=== PATIENT | female | born 1980 | race Caucasian/White ===

== ENCOUNTER 2023-06-15 11:18 | Inpatient (IN) | payer OTHER, SELFPAY ==
[2023-06-15] VITALS (17 sets, daily range): BP systolic 99–140; BP diastolic 57–93; PULSE 64–119; RESP 16–18; TEMP 36.9–38.2; O2SAT 96–99; BMI 24.1; BMI 26.1
--- NOTE | 2023-06-15 12:08 | PC.NURSE ---
Checked on patient. No needs required at this time.
--- NOTE | 2023-06-15 12:17 | XR_ITS ---
FINAL REPORT CLINICAL HISTORY: Shortness of breath COMPARISON: None FINDINGS: A portable view of the chest is obtained. Cardiac and mediastinal silhouettes are normal. The lungs are clear. There is no pleural effusion or pneumothorax. IMPRESSION: No acute process on this portable exam. Reviewed, Interpreted and Dictated by Courtney Salazar MD Transcribed by Shannan Morgan Authenticated and . [facility]
--- NOTE | 2023-06-15 12:18 | HMH.EDGENADL ---
Discharge Plan Disposition Patient Disposition: Admitted Chief Complaint: Fever Prescriptions Prescriptions: No Action prednisone 10 mg tablet 10 mg PO DAILY quetiapine 200 mg tablet 200 mg PO HS meloxicam 7.5 mg tablet 7.5 mg PO NEEDED PRN (Reason: Pain) amitriptyline 100 mg tablet 100 mg PO HS Patient Comments: TAKE 1 TABLET BY MOUTH ONCE DAILY AT NIGHT duloxetine 30 mg capsule,delayed release(DR/EC) 30 mg PO DAILY Patient Comments: TAKE 1 CAPSULE BY MOUTH ONCE DAILY DO NOT CRUSH OR CHEW methocarbamol 500 mg Tablet 500 mg PO QID Referrals Follow up/Referrals: Sofia Walker [Primary Care Provider] - See instructions Clinical Impressions Clinical Impression: Fever, Headache Discharge ED Provider: Venkatesh Ramirez General Adult HPI General Chief complaint: Fever Stated complaint: Headache, fever, chills Time Seen by Provider: 06/15/23 12:09 Mode of Arrival: Ambulatory Source of Information: Patient Limitations: No Limitations Description of Symptoms (Recalled from ER Triage Doc. by RN): Patient reports fever, chills, headache. States she has been having episodes of chilling, shaking and feeling extremely cold off and on for awhile now. Complaint today is that she can't get her fever down despite taking ibuprofen multiple times. History of Present Illness HPI narrative: 43-year-old female with a history of Sjogren syndrome on hydroxychloroquine here today with several days of headache and fever and shaking chills. This is her third ED visit for this. She went to [place] twice and was not told that she had any specific infectious etiology. She is not chronically on steroids however she was recently started on prednisone by [place]. She states that she does not have a cough she has a very mild sore throat she has no urinary symptoms and her only other major symptom that she complains about is a severe headache. She has no photophobia or neck stiffness. No neurologic symptoms over the last several days. She had a respiratory viral panel done at [place] yesterday and did not know those results because the analyzer was taking too long. Related Data Home Medications Medication Instructions Recorded Confirmed amitriptyline 100 mg tablet 100 mg PO HS sleep 06/15/23 06/15/23 duloxetine 30 mg capsule,delayed 30 mg PO DAILY unknown 06/15/23 06/15/23 release meloxicam 7.5 mg tablet 7.5 mg PO NEEDED PRN Pain 06/15/23 06/15/23 methocarbamol 500 mg tablet 500 mg PO QID Pain 06/15/23 06/15/23 prednisone 10 mg tablet 10 mg PO DAILY unknown 06/15/23 06/15/23 quetiapine 200 mg tablet 200 mg PO HS sleep 06/15/23 06/15/23 Allergies Allergy/AdvReac Type Severity Reaction Status Date / Time Sulfa (Sulfonamide Allergy Mild Verified 01/20/19 17:07 Antibiotics) [SULFA (SULFONAMIDE ANTIBIOTICS)] [facility] Disclaimer: The information contained in this section may have been updated after the patient was seen, as this information can be updated by other users. Social History Smoking Status: Current every day smoker tobacco type: e-cigarettes alcohol intake: never current occupational status: employed Travel in the last 8 weeks: None household members: family housing: house ROS Obtained: Yes All systems reviewed & no additional complaints except as documented Physical Exam General General appearance: alert Neck Neck exam: Absent meningismus (And supple) Respiratory Respiratory exam: Present normal lung sounds bilaterally Cardiovascular Cardiovascular exam: Present regular rate; Absent tachycardia Neurological Exam Neurological exam: Present alert and oriented X3 Medical Decision Making Aurelio Inquiry Pt receiving controlled substance: No Vital Signs: 06/15/23 11:19 06/15/23 11:29 06/15/23 11:30 Temperature 100.1 F H Temperature Source Oral Oral Pulse Rate 105 H Pulse Rate [Radial] 107 H
--- NOTE | 2023-06-15 12:21 | PC.NURSE ---
CALLED [facility] TO GET RECORDS FROM PT RECENT VISIT TO THE HOSPITAL, FAX NUMBER WAS GIVEN NOW WAITING FOR DOCUMENTS
[2023-06-15 12:34] LABS: Alanine Aminotransferase 27 U/L (12-78); Albumin Level 3.8 g/dl (3.5-5.0); Albumin/Globulin Ratio 1.3 (1.1-1.8); Alkaline Phosphatase 58 U/L (38-126); Anion Gap 10.3 mEq/L (5-15); Aspartate Amino Transferase 25 U/L (14-36); Bilirubin,Total 0.5 mg/dl (0.2-1.3); Blood Urea Nitrogen 6 mg/dl (7-17); Calcium 8.5 mg/dl (8.4-10.2); Carbon Dioxide 28 mmol/L (22.0-30.0); Chloride 103 mmol/L (98-107); Creatinine Clearance Estimated 92 mL/min (50-200); Estimated Glomerular Filt Rate 78 ml/min (>60); GFR (African American) 94 ML/MIN (>60); Globulin 2.9 g/dL (1.3-3.2); Glucose 136 mg/dl (74-100); Potassium 3.3 mmoL/L (3.5-5.1); Sodium 138 mmol/L (136-145); Total Protein,Serum 6.7 g/dl (6.3-8.2)
[2023-06-15 12:39] LABS: C-Reactive Protein 170.4 mg/L (0-4)
[2023-06-15 12:53] LABS: Procalcitonin 1.59 ng/mL (0.0-2.0)
--- NOTE | 2023-06-15 12:57 | PC.NURSE ---
COVID SWAB SENT TO LAB
--- NOTE | 2023-06-15 13:03 | PC.NURSE ---
RECEIVED MEDICAL RECORDS IS REVIEWING THEM NOW
[2023-06-15 13:16] LABS: Adenovirus,PCR Not Detected (NotDetected); Bordetella Pertussis Not Detected (NotDetected); Chlamydophila Pneumoniae, PCR Not Detected (NotDetected); Coronavirus 19, PCR Not Detected (NotDetected); Coronavirus 229E Not Detected (NotDetected); Coronavirus NL63 Not Detected (NotDetected); Coronavirus OC43 Not Detected (NotDetected); Coronovirus HKU1,PCR Not Detected (NotDetected); Human Metapneumovirus Not Detected (NotDetected); Influenza A, PCR Not Detected (NotDetected); Influenza AH1, 2009 Not Detected (NotDetected); Influenza AH1, PCR Not Detected (NotDetected); Influenza AH3,PCR Not Detected (NotDetected); Influenza B, PCR Not Detected (NotDetected); Mycoplasma Pneumoniae, PCR Not Detected (NotDetected); Parainfluenza 1, PCR Not Detected (NotDetected); Parainfluenza 2, PCR Not Detected (NotDetected); Parainfluenza 3, PCR Not Detected (NotDetected); Parainfluenza 4, PCR Not Detected (NotDetected); Respiratory Syncytial Virus Not Detected (NotDetected); Rhinovirus/Enterovirus Not Detected (NotDetected)
[2023-06-15 13:17] LABS: Strep Scrn Group A (Rapid) Negative (Negative)
--- NOTE | 2023-06-15 13:19 | PC.NURSE ---
PT NEEDS NOTHING, LAYING IN BED CALL LIGHT AT BS
[2023-06-15 13:40] LABS: Lactic Acid 1.2 mmol/L (0.7-2.1)
[2023-06-15 13:50] LABS: Appearance,Urine CLEAR (Clear); Bilirubin,Urine Negative (Negative); Blood, Urine 2+ (Negative); Color,Urine YELLOW (Yellow); Glucose,Urine (UA) Negative (Negative); Ketones,Urine Negative (Negative); Leukocyte Esterase,Urine TRACE (Negative); Microscopic, Urine URINE MICROSCOPIC (MICROSCOPIC); Nitrate,Urine Negative (Negative); PH,Urine 6.5 (5.0-8.5); Protein,Urine 1+ (Negative); Specific Gravity, Urine 1.015 (1.005-1.030)
[2023-06-15 14:05] LABS: Basophils % 0.1 % (0.1-2.0); Eosinophils % 0.4 % (0.1-12.0); Hematocrit 36.2 % (37.0-47.0); Hemoglobin 12.3 g/dL (12.2-16.2); Lymphocytes # 0.4 K/mm3 (0.7-4.5); Mean Corpuscular Hemoglobin 34.2 pg (27.0-31.2); Mean Corpuscular Volume 100.6 fl (81-99); Mean Platelet Volume 10.2 fl (7.4-10.4); Monocytes # 0.4 K/mm3 (0.1-1.0); Monocytes % 4.4 % (1.7-9.3); Neutrophils # 8.2 K/mm3 (1.8-7.8); Neutrophils % 90.5 % (37.0-80.0); Platelet Count 153 K/mm3 (142-424); Red Cell Distribution Width 11.6 % (11.5-17.5); White Blood Count 9.1 K/mm3 (4.8-10.8)
[2023-06-15 14:06] LABS: MANUAL DIFFERENTIAL MANUAL DIFFERENTIAL (MANUAL DIFF)
[2023-06-15 14:10] LABS: Bacteria,Urine Trace /lpf
[2023-06-15 14:34] LABS: Lymphocytes % 5 % (10-50); Monocytes % 3 % (2-9); Neutrophils % 92 % (42-76); Total Cells Counted 100
[2023-06-15 14:35] LABS: Anisocytosis 1+; Macrocytosis 1+; Ovalocytes 1+; Platelet Estimate Normal
--- NOTE | 2023-06-15 14:39 | PC.NURSE ---
ROUNDED ON PT NOTHING NEED DID GIVE ICECHIPS, CALL LIGHT AT BS
[2023-06-15 15:35] LABS: Glucose,CSF 61 mg/dl (40-70)
[2023-06-15 15:40] LABS: Appearance,CSF Clear (Clear)
[2023-06-15 15:41] LABS: Volume,CSF 8 mL
[2023-06-15 15:53] LABS: Red Blood Cell,CSF 0 cells/uL (0); White Blood Cell,CSF 1 cells/uL (0-5)
--- NOTE | 2023-06-15 15:53 | PC.NURSE ---
house aware of admission and need for bed assignment
--- NOTE | 2023-06-15 16:14 | EXP.PHA.CONS ---
Pharmacy Consult Date: 06/15/23 Time: 16:14 Referring provider: DR. NASH Reason for Consult:: VANCOMYCIN DOSING Allergies Allergy/AdvReac Type Severity Reaction Status Date / Time Sulfa (Sulfonamide Allergy Mild Verified 01/20/19 17:07 Antibiotics) [SULFA (SULFONAMIDE ANTIBIOTICS)] Home Medications Medication Instructions Recorded Confirmed Type amitriptyline 100 mg tablet 100 mg PO HS sleep 06/15/23 06/15/23 History duloxetine 30 mg capsule,delayed 30 mg PO DAILY unknown 06/15/23 06/15/23 History release meloxicam 7.5 mg tablet 7.5 mg PO NEEDED PRN Pain 06/15/23 06/15/23 History methocarbamol 500 mg tablet 500 mg PO QID Pain 06/15/23 06/15/23 History prednisone 10 mg tablet 10 mg PO DAILY unknown 06/15/23 06/15/23 History quetiapine 200 mg tablet 200 mg PO HS sleep 06/15/23 06/15/23 History New Prescriptions to Start Prescriptions: Height: 1.65 m Weight: 65.771 kg Laboratory Results:: Laboratory Results - last 24 hr 06/15/23 11:30: WBC 9.1, RBC 3.60 L, Hgb 12.3, Hct 36.2 L, MCV 100.6 H, MCH 34.2 H, MCHC 34.0, RDW 11.6, Plt Count 153, MPV 10.2, Neut % (Auto) 90.5 H, Lymph % (Auto) 4.0 L, [place] % (Auto) 4.4, Eos % (Auto) 0.4, Baso % (Auto) 0.1, Neut # (Auto) 8.2 H, Lymph # (Auto) 0.4 L, [place] # (Auto) 0.4, Eos # (Auto) 0.0, Baso # (Auto) 0.0, Total Counted 100, Neutrophils % (Manual) 92 H, Lymphocytes % (Manual) 5 L, Monocytes % (Manual) 3, Platelet Estimate Normal, Anisocytosis 1+, Macrocytosis 1+, Ovalocytes 1+, Sodium 138, Potassium 3.3 L, Chloride 103, Carbon Dioxide 28, Anion Gap 10.3, BUN 6 L, Creatinine 0.80, Estimated Creat Clear 92, Estimated GFR 78, Est GFR ( Amer) 94, Glucose 136 H, Calcium 8.5, Total Bilirubin 0.5, AST 25, ALT 27, Alkaline Phosphatase 58, C-Reactive Protein 170.4 H, Total Protein 6.7, Albumin 3.8, Globulin 2.9, Albumin/Globulin Ratio 1.3, Procalcitonin 1.59 06/15/23 12:56: Chlamy pneumoniae PCR Not detected, Adenovirus (PCR) Not detected, B. pertussis DNA (PCR) Not detected, Coronavirus OC43 (PCR) Not detected, Coronavirus HKU1 (PCR) Not detected, Coronavirus 229E (PCR) Not detected, SARS-CoV-2 (PCR) Not detected, Coronavirus NL63 (PCR) Not detected, Human Metapneumovir PCR Not detected, Influenza A (H1) PCR Not detected, Influ A (H1N1/09) PCR Not detected, Influenza A (H3) PCR Not detected, Influenza Type A (PCR) Not detected, Influenza Type B (PCR) Not detected, M. pneumoniae (PCR) Not detected, Parainfluenza 1 (PCR) Not detected, Parainfluenza 2 (PCR) Not detected, Parainfluenza 3 (PCR) Not detected, Parainfluenza 4 (PCR) Not detected, RSV (PCR) Not detected, Entero/Rhino (PCR) Not detected 06/15/23 13:00: Group A Strep Rapid Negative 06/15/23 13:03: Lactate 1.2 06/15/23 13:32: Urine Color Yellow, Urine Appearance Clear, Urine pH 6.5, Ur Specific [place] 1.015, Urine Protein 1+, Urine Glucose (UA) Negative, Urine Ketones Negative, Urine Blood 2+, Urine Nitrate Negative, Urine Bilirubin Negative, Urine Urobilinogen 1.0, Ur Leukocyte Esterase Trace, Urine RBC 5-10, Urine WBC 5-10, Ur Squamous Epith Cells 3-5, Urine Bacteria Trace 06/15/23 15:00: CSF Volume 8, CSF Appearance Clear, CSF WBC 1, CSF RBC 0, CSF Glucose 61, CSF Total Protein 30.0 Assessment and Plan Assessment and plan all Dx Assessment and Plan for all problems:: Pharmacokinetic dosing service Objective: Patient: Floor: Age: 43 yo Serum creatinine: 0.8 mg/dL Height: 65.0 Inches Weight (kg): 65.77 Assessment: IBW (kg): 57.00 Dosing wt(kg): 65.77 Estimated Creatinine clearance (ml/min): 79.9 CRCL method: Cockcroft and Gault using ibw(default). Drug selected: Vancomycin Loading dose (mg): 0 Vd (liters): 52.6 (factor used: 0.8 L/kg) Jose Elias (hr-1): 0.071 Half life (hrs): 9.76 Recommended dose: 1000 mg Interval: 12 hrs Infusion time (hrs): 2.0 Predicted peak (mcg/mL): 30.9 Predicted trough (mcg/mL): 15.19
--- NOTE | 2023-06-15 16:21 | PC.NURSE ---
Report given to Fco on Med Surg.
--- NOTE | 2023-06-15 16:22 | EXP.HP ---
History of Present Illness *Admission Date: 06/15/23 *Reason for visit:: fever, chills and headache *History of present illness: Ms. Russo is a 43 year old female with a past medical history of sjogren's syndrome (on hydroxychloroquine) and fibromyalgia. She presented to the ED with 4 days of fever, chills, intermittent body aches and recently has had a headache. She reports measuring a fever at home was as high as 103 F. She denies change in vision, new numbness/tingling, seizure like activity or involuntary movements and confusion. She's never been diagnosed with meningitis in the past. She hasn't recently taken antibiotics. She denies dysuria, polyuria, cough, shortness of breath, abdominal pain and diarrhea. [facility] Disclaimer: The information contained in this section may have been updated after the patient was seen, as this information can be updated by other users. Social History Smoking Status: Current every day smoker tobacco type: e-cigarettes alcohol intake: never current occupational status: employed Travel in the last 8 weeks: None household members: family housing: house Review of Systems Review of Systems Review of systems:: pertinent systems reviewed and negative unless documented below Constitutional Constitutional: Reports body ache(s), Reports fever(s) and Reports headache(s) ENT Ears, Nose, Mouth, and Throat: Reports headache(s) *Neurologic Neurologic: Reports headache(s) Meds Home Medications and Allergies Home Medications Medication Instructions Recorded Confirmed Type amitriptyline 100 mg tablet 100 mg PO HS sleep 06/15/23 06/15/23 History duloxetine 30 mg capsule,delayed 30 mg PO DAILY unknown 06/15/23 06/15/23 History release meloxicam 7.5 mg tablet 7.5 mg PO NEEDED PRN Pain 06/15/23 06/15/23 History methocarbamol 500 mg tablet 500 mg PO QID Pain 06/15/23 06/15/23 History prednisone 10 mg tablet 10 mg PO DAILY unknown 06/15/23 06/15/23 History quetiapine 200 mg tablet 200 mg PO HS sleep 06/15/23 06/15/23 History New Prescriptions to Start Prescriptions: Allergies Allergy/AdvReac Type Severity Reaction Status Date / Time Sulfa (Sulfonamide Allergy Mild Verified 01/20/19 17:07 Antibiotics) [SULFA (SULFONAMIDE ANTIBIOTICS)] Exam Data for Last 24 hours Vital signs and Labs for Last 24 Hours: Temp Pulse Resp BP Pulse Ox O2 Del Method 100.1 F H 112 H 18 124/82 97 Room Air 06/15/23 11:19 06/15/23 15:30 06/15/23 11:19 06/15/23 15:30 06/15/23 15:30 06/15/23 15:30 Laboratory Results - last 24 hr 06/15/23 11:30: WBC 9.1, RBC 3.60 L, Hgb 12.3, Hct 36.2 L, MCV 100.6 H, MCH 34.2 H, MCHC 34.0, RDW 11.6, Plt Count 153, MPV 10.2, Neut % (Auto) 90.5 H, Lymph % (Auto) 4.0 L, [place] % (Auto) 4.4, Eos % (Auto) 0.4, Baso % (Auto) 0.1, Neut # (Auto) 8.2 H, Lymph # (Auto) 0.4 L, [place] # (Auto) 0.4, Eos # (Auto) 0.0, Baso # (Auto) 0.0, Total Counted 100, Neutrophils % (Manual) 92 H, Lymphocytes % (Manual) 5 L, Monocytes % (Manual) 3, Platelet Estimate Normal, Anisocytosis 1+, Macrocytosis 1+, Ovalocytes 1+, Sodium 138, Potassium 3.3 L, Chloride 103, Carbon Dioxide 28, Anion Gap 10.3, BUN 6 L, Creatinine 0.80, Estimated Creat Clear 92, Estimated GFR 78, Est GFR ( Amer) 94, Glucose 136 H, Calcium 8.5, Total Bilirubin 0.5, AST 25, ALT 27, Alkaline Phosphatase 58, C-Reactive Protein 170.4 H, Total Protein 6.7, Albumin 3.8, Globulin 2.9, Albumin/Globulin Ratio 1.3, Procalcitonin 1.59 06/15/23 12:56: Chlamy pneumoniae PCR Not detected, Adenovirus (PCR) Not detected, B. pertussis DNA (PCR) Not detected, Coronavirus OC43 (PCR) Not detected, Coronavirus HKU1 (PCR) Not detected, Coronavirus 229E (PCR) Not detected, SARS-CoV-2 (PCR) Not detected, Coronavirus NL63 (PCR) Not detected, Human Metapneumovir PCR Not detected, Influenza A (H1) PCR Not detected, Influ A (H1N1/09) PCR Not detected, Influenza A (H3) PCR Not detected, Influenza Type A (PCR) Not detected, Infl
[2023-06-15 16:37] LABS: Mononuclear WBCs,CSF 0 %; Polynuclear WBCs,CSF 0 %
--- NOTE | 2023-06-15 16:37 | PC.NURSE ---
arrived by stretcher from ED
[2023-06-15 18:04] LABS: Barbiturates Screen,Urine Negative ng/ml (<200)
[2023-06-15 18:05] LABS: Benzodiazepines Screen,Urine Negative ng/ml (<200)
[2023-06-15 18:06] LABS: Amphetamine/Metha Screen,Urine Negative ng/ml (<1000); Cannabinoid Screen,Urine Negative ng/ml (<50)
[2023-06-15 18:07] LABS: Cocaine Screen,Urine Negative ng/ml (<300)
[2023-06-15 18:08] LABS: Methadone Screen,Urine Negative ng/ml (<300); Opiate Screen,Urine Negative ng/ml (<300)
[2023-06-15 18:09] LABS: Phencyclidine Screen,Urine Negative ng/ml (<25)
--- NOTE | 2023-06-15 22:46 | PC.NURSE ---
after hours drug mix- verified with Lesly from after hours pharmacy. SEE MAR
[2023-06-16] VITALS (9 sets, daily range): BP systolic 104–130; BP diastolic 48–72; PULSE 92–111; RESP 16–18; TEMP 36.8–39.5; O2SAT 94–99; BMI 26.6
--- NOTE | 2023-06-16 04:14 | PC.NURSE ---
pt temp has ranged from 99.0F to 103.1F t/o shift/since 1899. called hospitalist to report temp of 103.1, gave prn tylenol 650mg. pt has had c/o unrelieved ARREAGA and shivering t/o shift. skin: facial peeling r/t cosmetic treatment. RA. A&OX4. 20g LAC SL. up adlib. bed locked/lowest position, call light within reach.
--- NOTE | 2023-06-16 04:39 | INFXCTL.NOTE ---
rechecked temp 99.7
--- NOTE | 2023-06-16 04:40 | PC.NURSE ---
rechecked temp 99.7
[2023-06-16 07:01] LABS: Anion Gap 10.1 mEq/L (5-15); Blood Urea Nitrogen 6 mg/dl (7-17); Calcium 7.8 mg/dl (8.4-10.2); Carbon Dioxide 25 mmol/L (22.0-30.0); Chloride 106 mmol/L (98-107); Creatinine Clearance Estimated 91 mL/min (50-200); Estimated Glomerular Filt Rate 68 ml/min (>60); GFR (African American) 82 ML/MIN (>60); Glucose 98 mg/dl (74-100); Potassium 3.1 mmoL/L (3.5-5.1); Sodium 138 mmol/L (136-145)
[2023-06-16 07:09] LABS: Mean Platelet Volume 8.2 fl (7.4-10.4); Neutrophils # 8.6 K/mm3 (1.8-7.8)
[2023-06-16 07:10] LABS: Basophils % 0.1 % (0.1-2.0); Eosinophils # 0.1 K/mm3 (0.0-0.4); Eosinophils % 0.5 % (0.1-12.0); Hematocrit 33.1 % (37.0-47.0); Lymphocytes # 0.8 K/mm3 (0.7-4.5); Lymphocytes % 7.6 % (10-50); Mean Corpuscular HGB Conc 33.1 g/dL (31.8-35.4); Mean Corpuscular Volume 102.6 fl (81-99); Monocytes % 9.7 % (1.7-9.3); Platelet Count 131 K/mm3 (142-424); Red Blood Count 3.23 M/mm3 (4.20-5.40); Red Cell Distribution Width 12.2 % (11.5-17.5); White Blood Count 10.5 K/mm3 (4.8-10.8)
--- NOTE | 2023-06-16 09:24 | EXP.ACUTE.PN ---
Subjective *Date: 06/16/23 *Time: 17:41 Interval history: Events overnight: -Tmax 103.1 Fahrenheit today 4 AM -Blood culture positive for gram-negative rods, E. coli by PCR -Source unclear could be genitourinary -Stop acyclovir as CSF analysis not suggestive of meningitis -Platelet count 153-->131 (06/16) -Potassium 3.3--> 3.1 Subjective : intermittent chills per patient. No dysuria. May have felt a little bit of suprapubic abdominal pain. No nausea or vomiting. No neck stiffness. No headache. No blurry vision. No joint pains or new skin rash. No nausea or vomiting or diarrhea. No cough or shortness of breath. Medical Exam Vital signs and Labs for Last 24 Hours: Vital Signs Temp Pulse Pulse Resp BP BP Pulse Ox 06/16/23 07:59 98.8 F 101 H 17 114/67 94 L 06/16/23 06:18 06/16/23 04:41 06/16/23 04:00 103.1 F H 111 H 18 104/48 L 98 06/16/23 04:40 99.7 F H 06/16/23 02:44 06/16/23 00:00 98.9 F 105 H 18 114/62 96 06/16/23 01:00 06/15/23 23:00 06/15/23 21:00 06/15/23 20:00 06/15/23 23:03 100.7 F H 06/15/23 20:00 99.0 F 103 H 16 118/60 98 06/15/23 17:59 98.5 F 105 H 16 99/57 L 97 06/15/23 17:58 06/15/23 17:50 98 06/15/23 17:26 99.4 F 64 18 128/68 06/15/23 17:00 06/15/23 15:30 112 H 124/82 97 06/15/23 15:00 110 H 127/79 98 06/15/23 14:30 115 H 127/90 98 06/15/23 14:01 119 H 117/83 96 06/15/23 13:40 114 H 113/74 99 06/15/23 13:30 113 H 135/90 97 06/15/23 13:18 110 H 140/93 H 97 06/15/23 13:00 111 H 125/82 96 06/15/23 12:30 108 H 115/78 97 06/15/23 12:00 110 H 117/78 99 06/15/23 11:30 105 H 130/83 98 06/15/23 11:19 100.1 F H 107 H 18 134/88 99 O2 Del Method 06/16/23 07:59 Room Air 06/16/23 06:18 Room Air 06/16/23 04:41 Room Air 06/16/23 04:00 Room Air 06/16/23 04:40 06/16/23 02:44 Room Air 06/16/23 00:00 Room Air 06/16/23 01:00 Room Air 06/15/23 23:00 Room Air 06/15/23 21:00 Room Air 06/15/23 20:00 Room Air 06/15/23 23:03 06/15/23 20:00 Room Air 06/15/23 17:59 Room Air 06/15/23 17:58 Room Air 06/15/23 17:50 Room Air 06/15/23 17:26 Room Air 06/15/23 17:00 Room Air 06/15/23 15:30 Room Air 06/15/23 15:00 Room Air 06/15/23 14:30 Room Air 06/15/23 14:01 Room Air 06/15/23 13:40 Room Air 06/15/23 13:30 Room Air 06/15/23 13:18 Room Air 06/15/23 13:00 Room Air 06/15/23 12:30 Room Air 06/15/23 12:00 Room Air 06/15/23 11:30 06/15/23 11:19 Room Air Intake and Output 06/15/23 06/16/23 06/16/23 23:59 07:59 15:59 Intake Total 240 / 850 850 / 850 Output Total 0 / 0 0 / 0 Balance 240 / 850 850 / 850 Intake: Intake, Oral Amount 240 / 480 480 / 480 Intake, Total IV Amount 370 / 370 Acyclovir Sodium 650 mg In 0.9 263 / 263 % Sodium Chloride 250 ml @ 250 mls/hr IV Q8H NAVEEN Rx#:[id number] Ceftriaxone Sodium 2 gm In 0.9 107 / 107 % Sodium Chloride 100 ml @ 100 mls/hr IV Q12 NAVEEN Rx#:[id number] Output: Output, Urine Amount 0 / 0 0 / 0 Other: Number of Unmeasured Voids 1 Weight 71.1 kg 72.665 kg Patient Weight 06/16/23 23:59 Weight 72.665 kg Laboratory Results - last 24 hr 06/15/23 11:30: WBC 9.1, RBC 3.60 L, Hgb 12.3, Hct 36.2 L, MCV 100.6 H, MCH 34.2 H, MCHC 34.0, RDW 11.6, Plt Count 153, MPV 10.2, Neut % (Auto) 90.5 H, Lymph % (Auto) 4.0 L, [place] % (Auto) 4.4, Eos % (Auto) 0.4, Baso % (Auto) 0.1, Neut # (Auto) 8.2 H, Lymph # (Auto) 0.4 L, [place] # (Auto) 0.4, Eos # (Auto) 0.0, Baso # (Auto) 0.0, Total Counted 100, Neutrophils % (Manual) 92 H, Lymphocytes % (Manual) 5 L, Monocytes % (Manual) 3, Platelet Estimate Normal, Anisocytosis 1+, Macrocytosis 1+, Ovalocytes 1+, Sodium 138, Potassium 3.3 L, Chloride 103, Carbon Dioxide 28, Anion Gap 10.3, BUN 6 L, Creatinine 0.80, Estimated Creat Cl
--- NOTE | 2023-06-16 14:32 | PC.NURSE ---
courtesy tech note: pt given a warm blanket per requests. call light is within reach.
--- NOTE | 2023-06-16 18:12 | PC.NURSE ---
Fever noted, treated with prn acetaminophen. VS stable and patient remained on room air. One time dose ativan ordered as patient was shivering uncontrollably and anxious. Patient stated she felt much better after administration. IV antibiotics given. No pain reported
--- NOTE | 2023-06-16 19:49 | PC.NURSE ---
BSSR report from KULWINDER Lai
[2023-06-17] VITALS: BP 128/72; PULSE 104; RESP 16; TEMP 37; O2SAT 92
[2023-06-17 04:00] VITALS: BP 117/73; PULSE 97; RESP 17; TEMP 37.3; O2SAT 97; BMI 28.1
[2023-06-17 07:00] LABS: Basophils % 0.2 % (0.1-2.0); Eosinophils # 0.1 K/mm3 (0.0-0.4); Eosinophils % 1.1 % (0.1-12.0); Hematocrit 32.3 % (37.0-47.0); Hemoglobin 10.5 g/dL (12.2-16.2); Lymphocytes # 1.4 K/mm3 (0.7-4.5); Lymphocytes % 15.6 % (10-50); Mean Corpuscular HGB Conc 32.5 g/dL (31.8-35.4); Mean Corpuscular Hemoglobin 33.2 pg (27.0-31.2); Mean Corpuscular Volume 102.1 fl (81-99); Mean Platelet Volume 8.4 fl (7.4-10.4); Monocytes # 0.7 K/mm3 (0.1-1.0); Monocytes % 7.6 % (1.7-9.3); Neutrophils # 6.6 K/mm3 (1.8-7.8); Neutrophils % 75.5 % (37.0-80.0); Platelet Count 163 K/mm3 (142-424); Red Blood Count 3.17 M/mm3 (4.20-5.40); Red Cell Distribution Width 12.3 % (11.5-17.5); White Blood Count 8.7 K/mm3 (4.8-10.8)
[2023-06-17 07:11] LABS: Alanine Aminotransferase 22 U/L (12-78); Albumin Level 2.9 g/dl (3.5-5.0); Albumin/Globulin Ratio 1.1 (1.1-1.8); Alkaline Phosphatase 69 U/L (38-126); Anion Gap 7.7 mEq/L (5-15); Aspartate Amino Transferase 19 U/L (14-36); Bilirubin,Total 0.2 mg/dl (0.2-1.3); Blood Urea Nitrogen 9 mg/dl (7-17); Calcium 7.9 mg/dl (8.4-10.2); Carbon Dioxide 24 mmol/L (22.0-30.0); Chloride 110 mmol/L (98-107); Creatinine Clearance Estimated 108 mL/min (50-200); Estimated Glomerular Filt Rate 78 ml/min (>60); GFR (African American) 94 ML/MIN (>60); Globulin 2.7 g/dL (1.3-3.2); Glucose 100 mg/dl (74-100); Potassium 3.7 mmoL/L (3.5-5.1); Sodium 138 mmol/L (136-145); Total Protein,Serum 5.6 g/dl (6.3-8.2)
[2023-06-17 07:35] VITALS: BP 145/75; PULSE 99; RESP 18; TEMP 36.8; O2SAT 99
--- NOTE | 2023-06-17 09:59 | EXP.ACUTE.PN ---
Subjective *Date: 06/17/23 *Time: 09:59 Interval history: feeling much better, slept well no more chills no dysuria. No other new sx. Medical Exam Vital signs and Labs for Last 24 Hours: Vital Signs Temp Pulse Resp BP Pulse Ox O2 Del Method 06/17/23 07:35 98.3 F 99 H 18 145/75 H 99 Room Air 06/17/23 06:48 Room Air 06/17/23 04:00 99.1 F 97 H 17 117/73 97 Room Air 06/17/23 05:00 Room Air 06/17/23 02:54 Room Air 06/17/23 01:00 Room Air 06/17/23 00:00 98.6 F 104 H 16 128/72 92 L Room Air 06/16/23 23:00 Room Air 06/16/23 21:00 Room Air 06/16/23 20:00 Room Air 06/16/23 20:00 99.1 F 92 H 16 121/72 98 Room Air 06/16/23 18:51 Room Air 06/16/23 18:28 100.0 F H 06/16/23 17:00 Room Air 06/16/23 15:54 100.6 F H 06/16/23 15:00 Room Air 06/16/23 15:08 102.5 F H 94 H 18 130/65 99 Room Air 06/16/23 13:06 Room Air 06/16/23 11:08 Room Air 06/16/23 11:22 98.2 F 99 H 18 109/62 L 98 Room Air Intake and Output 06/16/23 06/17/23 06/17/23 23:59 07:59 15:59 Intake Total 726 / 2116 440 / 440 Output Total 700 / 900 300 / 300 0 / 300 Balance 26 / 1216 140 / 140 0 / 140 Intake: Intake, Oral Amount 240 / 1160 440 / 440 Intake, Total IV Amount 486 / 956 0.45% NaCl w/20mEq KCL 1,000 ml 386 / 386 @ 75 mls/hr IV .[id number] NAVEEN Rx #:[id number] Ceftriaxone Sodium 2 gm In 0.9 100 / 307 % Sodium Chloride 100 ml @ 100 mls/hr IV Q12 NAVEEN Rx#:[id number] Output: Output, Urine Amount 700 / 900 300 / 300 0 / 300 Other: Number of Voids 2 Number of Unmeasured Voids 1 1 Weight 76.748 kg Patient Weight 06/17/23 23:59 Weight 76.748 kg Laboratory Results - last 24 hr 06/15/23 13:32: Urine Color Yellow, Urine Appearance Clear, Urine pH 6.5, Ur Specific [place] 1.015, Urine Protein 1+, Urine Glucose (UA) Negative, Urine Ketones Negative, Urine Blood 2+, Urine Nitrate Negative, Urine Bilirubin Negative, Urine Urobilinogen 1.0, Ur Leukocyte Esterase Trace, Urine RBC 5-10, Urine WBC 5-10, Ur Squamous Epith Cells 3-5, Urine Bacteria Trace 06/17/23 06:33: WBC 8.7, RBC 3.17 L, Hgb 10.5 L, Hct 32.3 L, MCV 102.1 H, MCH 33.2 H, MCHC 32.5, RDW 12.3, Plt Count 163, MPV 8.4, Neut % (Auto) 75.5, Lymph % (Auto) 15.6, [place] % (Auto) 7.6, Eos % (Auto) 1.1, Baso % (Auto) 0.2, Neut # (Auto) 6.6, Lymph # (Auto) 1.4, [place] # (Auto) 0.7, Eos # (Auto) 0.1, Baso # (Auto) 0.0, Sodium 138, Potassium 3.7, Chloride 110 H, Carbon Dioxide 24, Anion Gap 7.7, BUN 9 D, Creatinine 0.80, Estimated Creat Clear 108, Estimated GFR 78, Est GFR ( Amer) 94, Glucose 100, Calcium 7.9 L, Total Bilirubin 0.2, AST 19, ALT 22, Alkaline Phosphatase 69, Total Protein 5.6 L, Albumin 2.9 L, Globulin 2.7, Albumin/Globulin Ratio 1.1 I & O for Labs for Last 24 Hours: Intake & Output 06/14/23 06/15/23 06/16/23 06/17/23 23:59 23:59 23:59 23:59 Intake Total 240 / 850 1916 / 2116 440 / 440 Output Total 0 / 0 700 / 900 300 / 300 Balance 240 / 850 1216 / 1216 140 / 140 Weight 71.1 kg 72.665 kg 76.748 kg Microbiology Reports for the Last 24 Hours: Microbiology 06/15/23 13:00 Throat Group A Streptococcus Screen ([facility]) - Final Negative for Group A Streptococcus. 06/15/23 13:05 Blood Blood Culture - Preliminary Gram Negative Rods 06/15/23 14:40 Cerebral Spinal Fluid Gram Stain - Final 06/15/23 14:40 Cerebral Spinal Fluid CSF Culture - Preliminary NO GROWTH AFTER 24 HOURS Additional Findings:: Genenral: no distress Chest: CTA oral cavity: moist CVS: RRR, no murmurs Abd: soft, non tender Ext: no edema Skin: no rash Neuro: AAOx3, ambulating MSK: no new joint pain or swelling Assessment and Plan *Assessment and plan (1) Gram-negative septicemia: Status: Acute Category: Medical Code(s): A41.50
[2023-06-17 11:34] VITALS: BP 121/76; PULSE 85; RESP 19; TEMP 36.9; O2SAT 97
[2023-06-17 15:28] VITALS: BP 139/95; PULSE 86; RESP 17; TEMP 36.9; O2SAT 98
[2023-06-17 20:00] VITALS: BP 116/67; PULSE 95; RESP 16; TEMP 37.4; O2SAT 97
[2023-06-18] VITALS: BP 121/76; PULSE 72; RESP 16; TEMP 36.6; O2SAT 96
[2023-06-18 04:00] VITALS: BP 115/66; PULSE 91; RESP 16; TEMP 37.6; O2SAT 95; BMI 26.9
[2023-06-18 07:07] LABS: Basophils % 0.4 % (0.1-2.0); Eosinophils # 0.2 K/mm3 (0.0-0.4); Eosinophils % 3.4 % (0.1-12.0); Hematocrit 34.6 % (37.0-47.0); Lymphocytes # 0.9 K/mm3 (0.7-4.5); Mean Corpuscular HGB Conc 31.8 g/dL (31.8-35.4); Mean Corpuscular Hemoglobin 32.9 pg (27.0-31.2); Mean Corpuscular Volume 103.4 fl (81-99); Mean Platelet Volume 8.4 fl (7.4-10.4); Monocytes # 0.3 K/mm3 (0.1-1.0); Monocytes % 5.1 % (1.7-9.3); Neutrophils % 77.2 % (37.0-80.0); Platelet Count 213 K/mm3 (142-424); Red Blood Count 3.35 M/mm3 (4.20-5.40); Red Cell Distribution Width 12.6 % (11.5-17.5); White Blood Count 6.5 K/mm3 (4.8-10.8)
[2023-06-18 07:14] LABS: Anion Gap 9.1 mEq/L (5-15); Blood Urea Nitrogen 7 mg/dl (7-17); Calcium 8.1 mg/dl (8.4-10.2); Carbon Dioxide 25 mmol/L (22.0-30.0); Chloride 108 mmol/L (98-107); Creatinine Clearance Estimated 118 mL/min (50-200); Estimated Glomerular Filt Rate 90 ml/min (>60); GFR (African American) 109 ML/MIN (>60); Glucose 131 mg/dl (74-100); Potassium 3.1 mmoL/L (3.5-5.1); Sodium 139 mmol/L (136-145)
[2023-06-18 08:00] VITALS: BP 159/75; PULSE 91; RESP 18; TEMP 36.4; O2SAT 98
--- NOTE | 2023-06-18 08:17 | EXP.DC.SUM ---
General Admission date:: 06/15/23 Discharge date: 06/18/23 HPI HPI HPI: Ms. Russo is a 43 year old female with a past medical history of sjogren's syndrome (on hydroxychloroquine) and fibromyalgia. She presented to the ED with 4 days of fever, chills, intermittent body aches and recently has had a headache. She reports measuring a fever at home was as high as 103 F. She denies change in vision, new numbness/tingling, seizure like activity or involuntary movements and confusion. She's never been diagnosed with meningitis in the past. She hasn't recently taken antibiotics. She denies dysuria, polyuria, cough, shortness of breath, abdominal pain and diarrhea. Hospital Course Hospital Course Hospital Course: 43-year-old female with history of Sjogren's presenting with complaints of ongoing fevers, myalgia and headache. Initial work-up suspicious for meningitis. LP done in the ER with CSF analysis not clearly indicated of meningitis, Gram stain negative for any organism. Started on empiric coverage with acyclovir, IV vancomycin and ceftriaxone. Blood culture returned positive for E. coli. Unclear source however suspect urogenital. Antibiotics and antimicrobials were weaned to ceftriaxone. Given sensitivity of culture, was transitioned to levofloxacin prior to discharge to complete 10 days of antibiotics. Work up during admission with the following findings. chest x-ray on 06/15: No pneumonia or infiltrate UA on 06/15: Appearance clear, negative for nitrates, trace leukocyte esterase, WBC 5-10, trace bacteria CSF analysis on 06/15: Volume 80 mL, appearance clear, CSF WBC 1, 0 RBC, CSF glucose 61, total protein 30 Blood culture on 06/15: Positive for E. coli. Sensitive to levofloxacin and ceftriaxone. Urine culture remained negative. During admission, fever resolved. Remained afebrile for over 36 hours prior to discharge. White cell count improved. Thrombocytopenia improved. Overall back to baseline clinical status. Spent 40 minutes in discharge counseling and direct care with patient. Exam Data for Last 24 hours Vital signs and Labs for Last 24 Hours: Temp Pulse Resp BP Pulse Ox O2 Del Method 99.7 F H 91 H 16 115/66 95 Room Air 06/18/23 04:00 06/18/23 04:00 06/18/23 04:00 06/18/23 04:00 06/18/23 04:00 06/18/23 04:19 Laboratory Results - last 24 hr 06/18/23 06:11: WBC 6.5 D, RBC 3.35 L, Hgb 11.0 L, Hct 34.6 L, MCV 103.4 H, MCH 32.9 H, MCHC 31.8, RDW 12.6, Plt Count 213 D, MPV 8.4, Neut % (Auto) 77.2, Lymph % (Auto) 14.0, [place] % (Auto) 5.1, Eos % (Auto) 3.4, Baso % (Auto) 0.4, Neut # (Auto) 5.0, Lymph # (Auto) 0.9, [place] # (Auto) 0.3, Eos # (Auto) 0.2, Baso # (Auto) 0.0, Sodium 139, Potassium 3.1 L, Chloride 108 H, Carbon Dioxide 25, Anion Gap 9.1, BUN 7, Creatinine 0.70, Estimated Creat Clear 118, Estimated GFR 90, Est GFR ( Amer) 109, Glucose 131 H D, Calcium 8.1 L I & O for Last 24 hours: Intake & Output 06/15/23 06/16/23 06/17/23 06/18/23 23:59 23:59 23:59 23:59 Intake Total 240 / 850 1916 / 2116 1560 / 1560 Output Total 0 / 0 700 / 900 1300 / 1300 Balance 240 / 850 1216 / 1216 260 / 260 Weight 71.1 kg 72.665 kg 76.748 kg 73.5 kg Microbiology Reports for the Last 24 Hours: Microbiology 06/15/23 13:05 Blood Blood Culture - Final Escherichia coli 06/15/23 14:40 Cerebral Spinal Fluid Gram Stain - Final 06/15/23 14:40 Cerebral Spinal Fluid CSF Culture - Preliminary NO GROWTH AFTER 48 HOURS 06/15/23 13:03 Blood Blood Culture - Preliminary NO GROWTH AFTER 48 HOURS 06/16/23 12:37 Urine,Clean Catch Urine Culture - Preliminary NO GROWTH AFTER 24 HOURS 06/15/23 13:00 Throat Group A Streptococcus Screen ([facility]) - Final Negative for Group A Streptococcus. Constitutional Constitutional: no acute distress *Routine HEENT Exam Head: Pr
--- NOTE | 2023-06-18 08:48 | PC.NURSE ---
COURTESY TECH NOTE; ROUNDED ON PT 0800, PT DENIED NEED FOR DRINK, ASSISTANCE WITH RESTROOM, AND NEED TO REPOSITION IN BED. CALL LIGHT WITHIN REACH, NO FURTHER REQUESTS AT THIS TIME KYM LLANES
--- NOTE | 2023-06-18 09:05 | EXP.PHA.PN ---
Subjective *Date: 06/18/23 *Time: 09:05 Medical Exam Vital signs and Labs for Last 24 Hours: Vital Signs Temp Pulse Resp BP Pulse Ox O2 Del Method 06/18/23 08:00 97.6 F 91 H 18 159/75 H 98 06/18/23 04:19 Room Air 06/18/23 04:00 99.7 F H 91 H 16 115/66 95 06/18/23 03:00 Room Air 06/18/23 01:00 Room Air 06/18/23 00:00 98 F 72 16 121/76 96 Room Air 06/17/23 23:00 Room Air 06/17/23 21:00 Room Air 06/17/23 20:00 99.4 F 95 H 16 116/67 97 Room Air 06/17/23 19:42 Room Air 06/17/23 18:21 Room Air 06/17/23 17:00 Room Air 06/17/23 15:00 Room Air 06/17/23 15:28 98.5 F 86 17 139/95 H 98 Room Air 06/17/23 13:00 Room Air 06/17/23 11:00 Room Air 06/17/23 11:34 98.5 F 85 19 121/76 97 Room Air Intake and Output 06/17/23 06/18/23 06/18/23 23:59 07:59 15:59 Intake Total 880 / 1560 720 / 720 Output Total 1000 / 1300 0 / 0 Balance -120 / 260 720 / 720 Intake: Intake, Oral Amount 880 / 1560 720 / 720 Output: Output, Urine Amount 1000 / 1300 0 / 0 Other: Number of Voids 3 Number of Unmeasured Voids 1 1 Weight 73.5 kg Patient Weight 06/18/23 23:59 Weight 73.5 kg Laboratory Results - last 24 hr 06/18/23 06:11: WBC 6.5 D, RBC 3.35 L, Hgb 11.0 L, Hct 34.6 L, MCV 103.4 H, MCH 32.9 H, MCHC 31.8, RDW 12.6, Plt Count 213 D, MPV 8.4, Neut % (Auto) 77.2, Lymph % (Auto) 14.0, [place] % (Auto) 5.1, Eos % (Auto) 3.4, Baso % (Auto) 0.4, Neut # (Auto) 5.0, Lymph # (Auto) 0.9, [place] # (Auto) 0.3, Eos # (Auto) 0.2, Baso # (Auto) 0.0, Sodium 139, Potassium 3.1 L, Chloride 108 H, Carbon Dioxide 25, Anion Gap 9.1, BUN 7, Creatinine 0.70, Estimated Creat Clear 118, Estimated GFR 90, Est GFR ( Amer) 109, Glucose 131 H D, Calcium 8.1 L I & O for Labs for Last 24 Hours: Intake & Output 06/15/23 06/16/23 06/17/23 06/18/23 23:59 23:59 23:59 23:59 Intake Total 240 / 850 1916 / 2116 1560 / 1560 720 / 720 Output Total 0 / 0 700 / 900 1300 / 1300 0 / 0 Balance 240 / 850 1216 / 1216 260 / 260 720 / 720 Weight 71.1 kg 72.665 kg 76.748 kg 73.5 kg Microbiology Reports for the Last 24 Hours: Microbiology 06/15/23 13:05 Blood Blood Culture - Final Escherichia coli 06/15/23 14:40 Cerebral Spinal Fluid Gram Stain - Final 06/15/23 14:40 Cerebral Spinal Fluid CSF Culture - Preliminary NO GROWTH AFTER 48 HOURS 06/15/23 13:03 Blood Blood Culture - Preliminary NO GROWTH AFTER 48 HOURS 06/16/23 12:37 Urine,Clean Catch Urine Culture - Preliminary NO GROWTH AFTER 24 HOURS 06/15/23 13:00 Throat Group A Streptococcus Screen ([facility]) - Final Negative for Group A Streptococcus. The patient's infection will respond to the chosen ABx?: Yes (BLOOD CX = E.COLI ROCEPHIN SUSCEPTIBLE, WBC WNL, LOW GRADE FEVER 99.7.) Is the patient receiving the right drug, dose, and route?: Yes Could a more targeted ABx be ordered?: No
--- NOTE | 2023-06-18 09:16 | PC.NURSE ---
COURTESY TECH NOTE; ROUNDED ON PT 0805, PT DENIED NEED FOR DRINK, ASSISTANCE WITH RESTROOM, AND NEED TO REPOSITION. CALL LIGHT WITHIN REACH, NO FURTHER REQUESTS AT THIS TIME Inna BLISS, KYM
[2023-06-18 11:40] VITALS: BP 128/90; PULSE 89; RESP 18; TEMP 36.6; O2SAT 98
--- NOTE | 2023-06-19 14:45 | CARE MANAGER ---
Patient returned phone call. She did pick up driver her antibiotic. She has a follow up appointment and denies any questions or concerns. KULWINDER Tamez
== END 2023-06-18 13:45 | disposition home or self-care (01) | DRG 872 ==
LOC: ER 15:15 → 2ND 16:26
PROVIDERS: Internal Medicine; Admitting Provider Internal Medicine; Emergency Provider Student in an Organized Health Care Education/Training Program; PCP Family Medicine; Visit Provider Internal Medicine
DX: A41.50 Gram-negative sepsis, unspecified (principal); M35.00 Sjogren syndrome, unspecified; E87.6 Hypokalemia; D69.6 Thrombocytopenia, unspecified
CPT/HCPCS: 62272; 36415; 62270; 71045; 80048; 80053; 80305; 81001; 82945; 83605; 84145; 84155; 85007; 85025; 86140; 87040; 87070; 87077; 87086; 87186; 87205; 87430; 87581; 87632; 87798; 89051; 99285; J0696; J1956; J3370

== ENCOUNTER 2023-10-21 13:32 | Emergency (ER) | payer OTHER, SELFPAY ==
[2023-10-21 14:35] VITALS: BP 130/81; PULSE 98; RESP 18; TEMP 37.3; O2SAT 98; BMI 25.0
--- NOTE | 2023-10-21 14:51 | EXP.UTC ---
Discharge Plan Disposition Patient Disposition: Home, Self-Care Condition: Good Prescriptions Prescriptions: No Action quetiapine 200 mg tablet 200 mg PO HS meloxicam 7.5 mg tablet 7.5 mg PO DAILYP PRN (Reason: Pain) amitriptyline 100 mg tablet 100 mg PO HS Patient Comments: TAKE 1 TABLET BY MOUTH ONCE DAILY AT NIGHT duloxetine 30 mg capsule,delayed release(DR/EC) 30 mg PO HS Patient Comments: TAKE 1 CAPSULE BY MOUTH ONCE DAILY DO NOT CRUSH OR CHEW methocarbamol 500 mg Tablet 500 mg PO QID fluvoxamine 25 mg tablet 50 mg PO HS Patient Comments: TAKE 2 TABLETS BY MOUTH ONCE DAILY AT NIGHT hydroxychloroquine 400 mg tablet 400 mg PO HS Patient Comments: TAKE 1 TABLET BY MOUTH ONCE DAILY clonazepam 2 mg tablet 2 mg PO HS Patient Comments: TAKE 1 TABLET BY MOUTH ONCE DAILY pilocarpine HCl 5 mg tablet 5 mg PO TID Patient Comments: TAKE 1 TABLET BY MOUTH THREE TIMES DAILY potassium chloride 20 mEq tablet,ER particles/crystals 20 meq PO DAILY Patient Comments: TAKE 1 TABLET BY MOUTH ONCE DAILY, DO NOT CRUSH, CHEW OR SPLIT Linzess 145 mcg capsule 145 mcg PO DAILY Patient Comments: TAKE 1 CAPSULE BY MOUTH ONCE DAILY levofloxacin 750 mg tablet 750 mg PO DAILY 6 Days Qty: 6 0RF Rx Instructions: first dose 06/19 Referrals Follow up/Referrals: Provider,Referral, MD [Primary Care Provider] - See instructions Activity Restrictions/Add. Instructions Additional Instructions/Restrictions: *Monitor Temp, Over the counter Motrin or Tylenol as directed/as needed Tylenol every 4 hours and Motrin every 6 hours (as long as your family doctor has told you that you can take it) for fever or pain. and straight to ER if unable to lower temp less than 101.0 after medication given *Warm salt water gargles may help to soothe the throat *Throat Lozenges? *Warm fluids like tea with honey may help to soothe the throat? *Sleep elevated *Humidifier/Vaporizer *Flonase 2 sprays in each nostril daily but be aware that it may take 2-3 days before you notice improvement *Bromfed may cause drowsiness. Know how it effects you (your child) before driving, caring for small child, or sending your child to school. Not other antihistamines/allergy medications while taking bromfed Your throat swab was sent for culture. Those results are typically sent to your primary care. Be sure to follow up in 2-3 days with your family doctor/primary care physician if no improvement so they can review those result and treat if necessary. If you don?t have a primary care doctor, I recommend you get one but in the mean time, you will have to return to a walk in clinic Follow up IMMEDIATELY for new or worsening symptoms or no Noticeable improvement over the next 48-72 hours. 911 for difficulty breathing or swallowing You were tested for today for COVID19 your test result should be back in the next 24 hours You may check your results on the [facility] [employer] [facility] if you are positive for COVID you will need to Quarantine for 5 days Clinical Impressions Clinical Impression: Viral syndrome Stand Alone Forms Stand Alone Forms: Work/School Release Instructions Patient Instructions: DI for Viral Syndrome Discharge ED Provider: Cori Houser [facility] [place] HPI General Stated complaint: body ache, sherman, st, fever, chills, Mode of Arrival: Ambulatory Source of Information: Patient Limitations: No Limitations Time Seen by Provider: 10/21/23 14:51 Description of Symptoms (Recalled from Triage Doc. by RN): PATIENT C/O BODY ACHES, RUNNY NOSE, SORE THROAT, AND FEVER SINCE YESTERDAY HEENT Symptoms (Recalled from RN notes): Yes Resp Symptoms (Recalled from RN notes): No Skin Symptoms (Recalled from RN notes): No MS Symptoms (Recalled from RN notes): No Functional Status (Recalled from RN notes): WNL History of Prese
[2023-10-21 14:58] LABS: Apearance,Urine Clear (Clear); Bilirubin,Urine Negative (Negative); Blood, Urine Trace (Negative); Color,Urine Yellow (Yellow); Glucose,Urine (UA) Negative (Negative); Ketones,Urine Negative (Negative); Protein,Urine Negative (Negative); Specific Gravity, Urine 1.005 (1.005-1.030); UTC Leukocyte Esterase,Urine Negative (Negative); UTC Nitrate,Urine Negative (Negative); Urobilinogen,Urine 0.2 EU/dl (0.2)
[2023-10-21 14:59] LABS: UTC Influenza A Antigen Negative (Negative); UTC Influenza B Antigen Negative (Negative); UTC Strep Screen (Rapid) Negative (Negative)
[2023-10-21 15:07] VITALS: BP 130/81; PULSE 98; RESP 18; TEMP 37.3; O2SAT 98
== END 2023-10-21 15:21 | disposition home or self-care (01) ==
PROVIDERS: Emergency Provider Nurse Practitioner
DX: U07.1 COVID-19 (principal); R51.9 Headache, unspecified; R50.9 Fever, unspecified; R07.0 Pain in throat; R09.81 Nasal congestion; F17.290 Nicotine dependence, other tobacco product, uncomplicated
CPT/HCPCS: 81003; 87635; 87804; 87880; 99204; 99212; G0463

== ENCOUNTER 2024-02-17 21:03 | Emergency (ER) | payer OTHER, SELFPAY ==
[2024-02-17] VITALS (19 sets, daily range): BP systolic 103–148; BP diastolic 73–102; PULSE 92–110; RESP 17–22; TEMP 36.3–37; O2SAT 97–100; BMI 22.3
--- NOTE | 2024-02-17 21:15 | HMH.EDGENADL ---
Discharge Plan Disposition Patient Disposition: Xfer Short-Term Hosp Chief Complaint: Overdose Prescriptions Prescriptions: No Action quetiapine 200 mg tablet 200 mg PO HS meloxicam 7.5 mg tablet 7.5 mg PO DAILYP PRN (Reason: Pain) amitriptyline 100 mg tablet 100 mg PO HS Patient Comments: TAKE 1 TABLET BY MOUTH ONCE DAILY AT NIGHT duloxetine 30 mg capsule,delayed release(DR/EC) 30 mg PO HS Patient Comments: TAKE 1 CAPSULE BY MOUTH ONCE DAILY DO NOT CRUSH OR CHEW methocarbamol 500 mg Tablet 500 mg PO QID fluvoxamine 25 mg tablet 50 mg PO HS Patient Comments: TAKE 2 TABLETS BY MOUTH ONCE DAILY AT NIGHT hydroxychloroquine 400 mg tablet 400 mg PO HS Patient Comments: TAKE 1 TABLET BY MOUTH ONCE DAILY clonazepam 2 mg tablet 2 mg PO HS Patient Comments: TAKE 1 TABLET BY MOUTH ONCE DAILY pilocarpine HCl 5 mg tablet 5 mg PO TID Patient Comments: TAKE 1 TABLET BY MOUTH THREE TIMES DAILY potassium chloride 20 mEq tablet,ER particles/crystals 20 meq PO DAILY Patient Comments: TAKE 1 TABLET BY MOUTH ONCE DAILY, DO NOT CRUSH, CHEW OR SPLIT Linzess 145 mcg capsule 145 mcg PO DAILY Patient Comments: TAKE 1 CAPSULE BY MOUTH ONCE DAILY levofloxacin 750 mg tablet 750 mg PO DAILY 6 Days Qty: 6 0RF Rx Instructions: first dose 06/19 Referrals Follow up/Referrals: Provider,Referral, MD [Referring] - See instructions Clinical Impressions Clinical Impression: Overdose of tricyclic antidepressants, Suicide attempt Discharge ED Provider: Carlo Arce General Adult HPI General Chief complaint: Overdose Stated complaint: OD Time Seen by Provider: 02/17/24 21:05 History of Present Illness HPI narrative: Patient is a 43-year-old female past medical history of previous suicide attempt who presents emergency department for evaluation of suicide attempt. Patient has a past medical history of Sjogren's syndrome and hypokalemia which she takes oral pills for. Patient took approximately 900 mg of amitriptyline which is prescribed to her for sleep . She took approximately 200 to 300 mg of Seroquel and drank 5 beers. This all occurred approximately 1.5 hours prior to arrival. Denies other coingestions, trauma. She did this intentionally for self-harm. Related Data Home Medications Medication Instructions Recorded Confirmed amitriptyline 100 mg tablet 100 mg PO HS depression/sleep 06/15/23 06/15/23 duloxetine 30 mg capsule,delayed 30 mg PO HS Depression 06/15/23 06/16/23 release meloxicam 7.5 mg tablet 7.5 mg PO DAILYP PRN Pain 06/15/23 06/16/23 methocarbamol 500 mg tablet 500 mg PO QID muscle spasms 06/15/23 06/15/23 quetiapine 200 mg tablet 200 mg PO HS sleep 06/15/23 06/15/23 clonazepam 2 mg tablet 2 mg PO HS Anxiety 06/16/23 06/16/23 fluvoxamine 25 mg tablet 50 mg PO HS obsessive compulsive 06/16/23 06/16/23 disorder hydroxychloroquine 400 mg tablet 400 mg PO HS autoimmune disorder 06/16/23 06/16/23 linaclotide 145 mcg capsule 145 mcg PO DAILY irritable bowel 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 pilocarpine HCl 5 mg tablet 5 mg PO TID dry mouth 06/16/23 06/16/23 potassium chloride 20 mEq 20 meq PO DAILY potassium 06/16/23 06/16/23 tablet,extended release(part/cryst) supplement Previous Rx's Medication Instructions Recorded levofloxacin 750 mg tablet 750 mg PO DAILY 6 days #6 tabs 06/18/23 Allergies Allergy/AdvReac Type Severity Reaction Status Date / Time Sulfa (Sulfonamide Allergy Mild Verified 01/20/19 17:07 Antibiotics) [SULFA (SULFONAMIDE ANTIBIOTICS)] [facility] Disclaimer: The information contained in this section may have been updated after the patient was seen, as this information can be updated by other users. Medical History (Updated 02/17/24 @ 22:39 by Carlo Arce MD) Irritable bowel syndrome (IBS) Surgical History (Updated 06/15/23 @ 17:38 by Jaime Fallon RN) No significant past surgical history Family History (Updated 06/15/23 @ 17:36 by Jaime Fallon RN) Other Brain cancer Family history of asthma Family history of bronchitis Family history of migraine headaches Social History (Updated 06/15/23 @ 17:39 by Jaime Fallon RN) Smoking Status: Unknown if ever smoked alcohol intake: never current occupational status: employed Travel in the last 8 weeks: None household members: family housing: house ROS Obtained: Yes Systems reviewed as appropriate & no additional complaints except as documented Physical Exam General General appearance: alert, in no apparent distress and other (Sleepy, rousable to voice) Head Head exam: atraumatic and normocephalic Eye Eye exam: Present PERRL and EOMI ENT ENT exam: Present mucous membranes moist Neck Neck exam: Present normal inspection Chest Chest inspection: Present normal inspection and symmetric chest wall rise Respiratory Respiratory exam: Present normal lung sounds bilaterally; Absent respiratory distress Cardiovascular Cardiovascular exam: Present normal rhythm and tachycardia Abdominal Exam Abdominal exam: Present soft; Absent tenderness Extremities Exam Extremities exam: Present normal inspection Neurological Exam Neurological exam: Present alert and oriented X3 Psychiatric Psychiatric exam: Present normal affect Skin Skin exam: Present warm and dry Medical Decision Making Aurelio Inquiry Pt receiving controlled substance: No Vital Signs: 02/17/24 21:03 Temperature 98.6 F Temperature Source Oral Pulse Rate [Left Radial] 109 H Respiratory Rate 22 Blood Pressure [Right Arm] 123/81 Blood Pressure Mean [Right Arm] 95 Blood Pressure Source [Right Arm] Automatic Cuff Blood Pressure Position [Right Arm] Sitting 02 Sat by Pulse Oximetry 97 Oxygen Delivery Method Room Air Lab Data Lab Results 02/17/24 20:47: WBC 4.0 L, RBC 3.83 L, Hgb 13.7, Hct 41.9, MCV 109.3 H, MCH 35.7 H, MCHC 32.7, RDW 12.7, Plt Count 230, MPV 8.3, Neut % (Auto) 51.3, Lymph % (Auto) 35.7, [place] % (Auto) 7.4, Eos % (Auto) 3.3, Baso % (Auto) 2.3 H, Neut # (Auto) 2.1, Lymph # (Auto) 1.4, [place] # (Auto) 0.3, Eos # (Auto) 0.1, Baso # (Auto) 0.1, Sodium 140, Potassium 3.3 L, Chloride 111 H, Carbon Dioxide 23, Anion Gap 9.3, BUN 8, Creatinine 0.70, Estimated Creat Clear 94, Estimated GFR 90, Est GFR ( Amer) 109, Glucose 100, Calcium 9.6, Magnesium 2.0, Total Bilirubin 0.3, AST 26, ALT 18, Alkaline Phosphatase 37 L, Total Protein 6.9, Albumin 4.4, Globulin 2.5, Albumin/Globulin Ratio 1.8, Serum HCG, Qual Negative, Salicylates < 1.0 L, Acetaminophen < 10 L, Plasma/Serum Alcohol 15 H 02/17/24 21:15: Urine Opiates Screen Negative, Urine Methadone Screen Negative, Ur Barbituates Screen Negative, Ur Phencyclidine Scrn Negative, Ur Amphetamines Screen Negative, U Benzodiazepines Scrn Negative, Urine Cocaine Screen Negative, U Marijuana (THC) Screen Negative 02/17/24 21:32: VBG pH 7.38, VBG pCO2 36.7, VBG pO2 182.7 H, VBG HCO3 21.0 L, VBG Total CO2 22.2 L, VBG O2 Saturation 98.9 H, VBG Base Excess -4.2 L, VBG Lactic Acid 2.2 H 02/17/24 20:47 02/17/24 20:47 Orders (Tests/Meds): ED MEDICATIONS Generic Name Dose Route Start Last Admin Trade Name Freq PRN Reason Stop Dose Admin Sodium Bicarbonate 150 meq/ 1,150 mls @ 250 mls/hr 02/17/24 21:34 02/17/24 21:28 Dextrose IV 03/18/24 21:33 250 mls/hr .Q4H36M NAVEEN Administration Propofol 100 mls @ 3.538 mls/hr 02/17/24 22:17 02/17/24 22:34 Diprivan 10mg/Ml 100ml Bottle IV 03/18/24 22:16 10 mcg/kg/min .Q24H NAVEEN 3.54 mls/hr Administration Protocol 10 MCG/KG/MIN Discontinued Medications Generic Name Dose Route Start Last Admin Trade Name Freq PRN Reason Stop Dose Admin Etomidate 30 mg 02/17/24 22:19 02/17/24 22:10 Etomidate 40mg/20ml Vial IV 02/17/24 22:20 30 mg ONCE ONE Administration Fentanyl Citrate 50 mcg 02/17/24 22:16 02/17/24 22:32 Fentanyl 100mcg/2ml Vial IV 02/17/24 22:17 50 mcg ONCE ONE Administration Succinylcholine Chloride 100 mg 02/17/24 22:18 02/17/24 22:24 Succinylcholine 20mg/Ml 10 Ml Mdv IV 02/17/24 22:19 100 mg ONCE ONE Administration Succinylcholine Chloride 100 mg 02/17/24 22:23 Succinylcholine 20mg/Ml 10 Ml Mdv IV 02/17/24 22:24 ONCE ONE ORDERS Category Date Time Status CXR --portable [XR chest portable] Stat Exams 02/17/24 22:20 Taken Acetaminophen Stat Lab 02/17/24 20:47 Completed Blood alcohol [Ethyl Alcohol] Stat Lab 02/17/24 20:47 Completed CBC w/Auto Diff [Complete Blood Count Auto Diff] Stat Lab 02/17/24 20:47 Completed CMP [Comprehensive Metabolic Panel] Stat Lab 02/17/24 20:47 Completed Drug Screen,Urine Stat Lab 02/17/24 21:15 Completed HCG Qualitative, Serum Stat Lab 02/17/24 20:47 Completed Magnesium Stat Lab 02/17/24 20:47 Completed Salicylate Stat Lab 02/17/24 20:47 Completed UA [Urinalysis and Microscopic] Stat Lab 02/17/24 21:15 Received VBG [Venous Blood Gas] Stat RT 02/17/24 21:32 Completed ECG Data Tracing #1: Independently interpreted by me, rate is 107, rhythm is regular, sinus rhythm, QRS 124, QTc 423, right axis deviation, no ST elevation in anatomical contiguous leads. Terminal R wave. Tracing #2: Independently interpreted by me, rate is 106, rhythm is regular, axis is rightward deviated, QRS 139, QTc 433, right bundle branch block Medical Decision Narrative: Patient is a 43-year-old female with past medical history described above who presents emergency department for evaluation of intentional self-harm with TCA overdose. Patient is hemodynamically stable upon arrival, arousable to voice, slight tachycardia. EKG patient has QRS duration of 124, terminal R wave, right axis deviation concerning for true TCA toxicity. Patient will be started on bicarb drip in an attempt to narrow QRS less than 100 ms. Workup will be conducted with hematologic labs, drug screen, coingestants, VBG, hCG. Crystalloid bolus will be administered. Upon repeat evaluation patient is becoming encephalopathic and increasingly difficult to rouse with periods of severe agitation. Repeat EKG shows continued worsening widening of the QRS for which 1 amp of bicarb will be pushed on top of the bicarb drip which is already running. Due to predicted course and inability to protect patient's airway intermittently patient underwent rapid sequence intubation with etomidate and succinylcholine with success. Postintubation sedation with propofol and push dose fentanyl. The case was discussed with [facility] Dr. Finley who agrees patient would benefit from tertiary care management at this time. Patient was transported to [facility] emergency department for continued evaluation. Procedure: Procedure performed was intubation. Procedure performed by Carlo Arce. Indication was inability to protect airway and projected course. 30 mg of etomidate and 100 mg of succinylcholine were administered, MAC 3 blade was advanced into the vallecula and 7-0 tube was advanced through the cords. Number of attempts was 1. Misting on the tube confirmed. Bilateral breath sounds, positive color change. Critical Care Critical Care Time Critical Care Time: Yes Attestation: On 02/17/24, the high probability of a clinically significant, sudden or life threatening deterioration of the following system(s) required my full and direct attention, intervention and personal management. The time I documented below is in addition to time spent performing reported procedures but includes the following listed in this critical care notation. Total Time Total Critical Care Time: 45
--- NOTE | 2024-02-17 21:25 | PC.NURSE ---
Assisted patient to bedside commode, patient urinated approximately 900ml of pale yellow urine.
[2024-02-17] MEDS: SODIUM BICARBONATE 150 MEQ in DEXTROSE 5 % IN WATER 1,000 ML 250 MEQ IV (21:28)
--- NOTE | 2024-02-17 21:30 | ECG_ITS ---
APPROVED REPORT Exam: Resting ECG HR:107 bpm ECG Measurements Heart Rate 107 AXES MN 177 P 68 QRSd 124 QRS 101 QT 360 T 66 QTc 423 Critical Notification Critical Value: No Conclusion SINUS TACHYCARDIA RIGHT AXIS DEVIATION [QRS AXIS > 100] MODERATE INTRAVENTRICULAR CONDUCTION DELAY [110+ ms QRS DURATION] ABNORMAL ECG Electronically signed by : LOLITA FOLEY, 02/18/2024 00:49:22
--- NOTE | 2024-02-17 21:33 | PC.NURSE ---
staff have been in room, one on one started at this time
--- NOTE | 2024-02-17 21:47 | PC.NURSE ---
Contacted poison control and spoke with Nisha regarding patient. Recommendations to add alcohol level, magnesium levels. Watch for anticholenergic symptoms including urine retention, seizures, extrapyramidal symptoms. Benzodiazapines for seizure activity, IV fluids for hypotension, sodium bicarb for prolonged QRS interval > 110, which has already been initiated, and electrolyte replacement to the higher end of normal for magnesium and potassium in the event of QTc prolongation. Informed Dr. Arce of all information, orders added as recommended.
--- NOTE | 2024-02-17 21:50 | PC.NURSE ---
Patient becoming less coherent with speech, beginning to have etrapyrmidal symptoms and not consistently protecting airway. Dr. Arce notified. Preparing to move to room 2 for RSI and intubation.
--- NOTE | 2024-02-17 22:04 | PC.NURSE ---
Contacted in regards to transferring this patient for a TCA overdose. They stated there provider is on another call but they would call us back.
[2024-02-17] MEDS: ETOMIDATE 40MG/20ML VIAL 30 MG IV (22:10)
--- NOTE | 2024-02-17 22:13 | PC.NURSE ---
called back at 2210hrs and had Dr. Finley on the line for Dr. Arce, he was currently in the intubating this patient, I told the transfer center that i could relay any messages between the Drs in [facility] the transfer center declined to do so. they stated that they can call us back in 10 mins.
[2024-02-17 22:17] LABS: HCG Qualitative, Serum Negative (Negative)
[2024-02-17 22:18] LABS: Hematocrit 41.9 % (37.0-47.0); Hemoglobin 13.7 g/dL (12.2-16.2); Mean Corpuscular Volume 109.3 fl (81-99); Red Blood Count 3.83 M/mm3 (4.20-5.40)
[2024-02-17 22:19] LABS: Basophils % 2.3 % (0.1-2.0); Eosinophils % 3.3 % (0.1-12.0); Lymphocytes # 1.4 K/mm3 (0.7-4.5); Lymphocytes % 35.7 % (10-50); Mean Corpuscular HGB Conc 32.7 g/dL (31.8-35.4); Mean Corpuscular Hemoglobin 35.7 pg (27.0-31.2); Mean Platelet Volume 8.3 fl (7.4-10.4); Monocytes # 0.3 K/mm3 (0.1-1.0); Monocytes % 7.4 % (1.7-9.3); Neutrophils # 2.1 K/mm3 (1.8-7.8); Neutrophils % 51.3 % (37.0-80.0); Platelet Count 230 K/mm3 (142-424); Red Cell Distribution Width 12.7 % (11.5-17.5)
[2024-02-17 22:20] LABS: Anion Gap 9.3 mEq/L (5-15); Basophils # 0.1 K/mm3 (0-0.2); Blood Urea Nitrogen 8 mg/dl (7-17); Carbon Dioxide 23 mmol/L (22.0-30.0); Chloride 111 mmol/L (98-107); Creatinine Clearance Estimated 94 mL/min (50-200); Eosinophils # 0.1 K/mm3 (0.0-0.4); Estimated Glomerular Filt Rate 90 ml/min (>60); GFR (African American) 109 ML/MIN (>60); Potassium 3.3 mmoL/L (3.5-5.1); Sodium 140 mmol/L (136-145)
--- NOTE | 2024-02-17 22:20 | XR_ITS ---
PROCEDURE INFORMATION: Exam: XR Chest Exam date and time: 02/17/2024 10:10 PM Age: 43 years old Clinical indication: Device placement; Ett placement (vent status); Additional info: Tube placement TECHNIQUE: Imaging protocol: Radiologic exam of the chest. Views: 1 view. COMPARISON: CR XR CHEST PORTABLE 06/15/2023 12:45 PM FINDINGS: Tubes, catheters and devices: Endotracheal tube has been inserted with the tip just above the clavicular heads and approximately 5 cm above the rita. Lungs: There is hazy opacity in the left upper lung and perihilar distributions. Pleural spaces: No pleural effusion. No pneumothorax. Heart/Mediastinum: There is mild prominence of the superior mediastinum which could reflect vascular congestion. Bones/joints: Age appropriate. IMPRESSION: 1. Endotracheal tube tip is above the clavicular heads and would be more secure if advanced approximately 3 cm. 2. Left upper lung and perihilar heterogeneous opacities could reflect pneumonia, atelectasis, less likely aspiration given distribution.
[2024-02-17 22:21] LABS: Acetaminophen < 10 ug/ml (10-30); Alanine Aminotransferase 18 U/L (12-78); Albumin Level 4.4 g/dl (3.5-5.0); Albumin/Globulin Ratio 1.8 (1.1-1.8); Alkaline Phosphatase 37 U/L (38-126); Aspartate Amino Transferase 26 U/L (14-36); Bilirubin,Total 0.3 mg/dl (0.2-1.3); Calcium 9.6 mg/dl (8.4-10.2); Globulin 2.5 g/dL (1.3-3.2); Glucose 100 mg/dl (74-100); Salicylate < 1.0 mg/dL (2.0-20.0); Total Protein,Serum 6.9 g/dl (6.3-8.2)
[2024-02-17 22:22] LABS: Amphetamine/Metha Screen,Urine Negative ng/ml (<1000); Barbiturates Screen,Urine Negative ng/ml (<200); Methadone Screen,Urine Negative ng/ml (<300); Opiate Screen,Urine Negative ng/ml (<300); Phencyclidine Screen,Urine Negative ng/ml (<25)
[2024-02-17 22:23] LABS: Benzodiazepines Screen,Urine Negative ng/ml (<200); Cannabinoid Screen,Urine Negative ng/ml (<50); Cocaine Screen,Urine Negative ng/ml (<300)
[2024-02-17 22:23] LABS: Ethyl Alcohol 15 mg/dl (0-10)
[2024-02-17 22:24] LABS: Microscopic, Urine URINE MICROSCOPIC (MICROSCOPIC)
[2024-02-17] MEDS: SUCCINYLCHOLINE 20MG/ML 10 ML MDV 100 MG IV (22:24)
--- NOTE | 2024-02-17 22:26 | PC.NURSE ---
contacted us back at this time to speak with Dr. Arce
--- NOTE | 2024-02-17 22:30 | ECG_ITS ---
APPROVED REPORT Exam: Resting ECG HR:106 bpm ECG Measurements Heart Rate 106 AXES ID 189 P 69 QRSd 139 QRS 104 QT 371 T 70 QTc 433 Critical Notification Critical Value: No Conclusion SINUS TACHYCARDIA RIGHT AXIS DEVIATION [QRS AXIS > 100] RIGHT BUNDLE BRANCH BLOCK [120+ ms QRS DURATION, UPRIGHT V1, 40+ ms S IN I/aVL/V4/V5/V6] ABNORMAL ECG Electronically signed by : LOLITA FOLEY, 02/18/2024 00:47:30
[2024-02-17 22:32] LABS: VBG Base Excess -4.2 mmol/L (-2.4-2.3); VBG Oxygen Saturation 98.9 % (50-70); VBG PCO2 36.7 mmol/L (35-51); VBG PH 7.38 mmol/L (7.31-7.41); VBG PO2 182.7 mmol/L (28-40); VBG Total CO2 22.2 mmol/L (23-27)
[2024-02-17] MEDS: FENTANYL 100MCG/2ML VIAL 50 MCG IV (22:32)
[2024-02-17 22:33] LABS: Lactate Venous 2.2 mmol/L (0.4-2.0)
[2024-02-17] MEDS: propofoL 100 ML 3.54 MG IV (22:34)
--- NOTE | 2024-02-17 22:40 | PC.NURSE ---
Nurse to nurse report to Nisha MIRAMONTES [facility]
[2024-02-17 22:41] LABS: Appearance,Urine CLEAR (Clear); Bilirubin,Urine Negative (Negative); Blood, Urine TRACE-I (Negative); Color,Urine YELLOW (Yellow); Glucose,Urine (UA) Negative (Negative); Ketones,Urine Negative (Negative); Leukocyte Esterase,Urine Negative (Negative); Nitrate,Urine Negative (Negative); Protein,Urine Negative (Negative); Specific Gravity, Urine <= 1.005 (1.005-1.030); Urobilinogen,Urine 0.2 EU/dl (0.2)
[2024-02-17] MEDS: PROPOFOL 10MG/ML 20ML VIAL 40 MG IV (22:44)
[2024-02-17 22:54] LABS: Bacteria,Urine Trace /lpf; RBC,Urine Occasional #/hpf (0-3)
--- NOTE | 2024-02-17 22:55 | PC.NURSE ---
Provider speaking with patient's mother via telephone at this time. Awaiting helicopter.
[2024-02-17] MEDS: KCl 20mEq/100ml 100 ML 50 MEQ IV (23:02)
--- NOTE | 2024-02-17 23:07 | PC.NURSE ---
helicopter personnel arrived and loading patient
--- NOTE | 2024-02-17 23:14 | PC.NURSE ---
Report to air ambulance nurse and medic at bedside.
--- NOTE | 2024-02-17 23:26 | PC.NURSE ---
Updated poison control on patient situation and transfer to [facility] for continued follow up.
== END 2024-02-17 23:39 | disposition short-term general hospital (02) ==
PROVIDERS: Emergency Provider Emergency Medicine; PCP Family Medicine
DX: T43.012A Poisoning by tricyclic antidepressants, intentional self-harm, initial encounter (principal); R94.31 Abnormal electrocardiogram [ECG] [EKG]; E87.6 Hypokalemia; F33.9 Major depressive disorder, recurrent, unspecified; M35.00 Sjogren syndrome, unspecified
CPT/HCPCS: 31500; 51702; 71045; 80053; 80305; 80307; 80329; 81001; 82803; 83735; 84703; 85025; 93005; 96365; 96366; 96367; 96374; 96375; 99291; G0480; J0330; J2704

== ENCOUNTER 2024-03-26 13:51 | Emergency (ER) | payer OTHER, SELFPAY ==
[2024-03-26 13:53] VITALS: BP 137/90; PULSE 74; RESP 16; TEMP 36.7; O2SAT 100; BMI 24.5
[2024-03-26 14:00] VITALS: BP 138/108; PULSE 69; O2SAT 99
--- NOTE | 2024-03-26 14:29 | PC.NURSE ---
DR FOLEY AT BEDSIDE
[2024-03-26 14:30] VITALS: BP 147/89; PULSE 66; O2SAT 100
--- NOTE | 2024-03-26 14:44 | CT_ITS ---
PROCEDURE INFORMATION: Exam: CT Head Without Contrast Exam date and time: 03/26/2024 3:05 PM Age: 43 years old Clinical indication: Visual disturbance; Additional info: Blurry vision, facial paraesthesias TECHNIQUE: Imaging protocol: Computed tomography of the head without contrast. Radiation optimization: All CT scans at this facility use at least one of these dose optimization techniques: automated exposure control; mA and/or kV adjustment per patient size (includes targeted exams where dose is matched to clinical indication); or iterative reconstruction. COMPARISON: No relevant prior studies available. FINDINGS: Brain: Normal. No hemorrhage. Unremarkable white matter. No mass effect. Cerebral ventricles: No ventriculomegaly. Paranasal sinuses: Visualized sinuses are unremarkable. No fluid levels. Mastoid air cells: Visualized mastoid air cells are well aerated. Bones: Unremarkable. No acute fracture. Soft tissues: Unremarkable. IMPRESSION: No acute intracranial abnormality.
[2024-03-26 14:51] LABS: Basophils # 0.1 K/mm3 (0-0.2); Eosinophils % 0.6 % (0.1-12.0); Hematocrit 42.1 % (37.0-47.0); Hemoglobin 14.2 g/dL (12.2-16.2); Lymphocytes # 1.1 K/mm3 (0.7-4.5); Lymphocytes % 19.3 % (10-50); Mean Corpuscular HGB Conc 33.8 g/dL (31.8-35.4); Mean Corpuscular Hemoglobin 35.3 pg (27.0-31.2); Mean Corpuscular Volume 104.4 fl (81-99); Mean Platelet Volume 7.9 fl (7.4-10.4); Monocytes # 0.3 K/mm3 (0.1-1.0); Monocytes % 5.1 % (1.7-9.3); Neutrophils # 4.2 K/mm3 (1.8-7.8); Neutrophils % 74.1 % (37.0-80.0); Platelet Count 256 K/mm3 (142-424); Red Blood Count 4.03 M/mm3 (4.20-5.40); Red Cell Distribution Width 12.4 % (11.5-17.5); White Blood Count 5.7 K/mm3 (4.8-10.8)
[2024-03-26 14:55] LABS: Alanine Aminotransferase 20 U/L (12-78); Albumin Level 4.7 g/dl (3.5-5.0); Albumin/Globulin Ratio 1.8 (1.1-1.8); Alkaline Phosphatase 51 U/L (38-126); Anion Gap 11.7 mEq/L (5-15); Aspartate Amino Transferase 22 U/L (14-36); Bilirubin,Total 0.5 mg/dl (0.2-1.3); Blood Urea Nitrogen 8 mg/dl (7-17); Calcium 9.5 mg/dl (8.4-10.2); Carbon Dioxide 24 mmol/L (22.0-30.0); Chloride 108 mmol/L (98-107); Creatine Kinase 52 U/L (30-135); Creatinine Clearance Estimated 121 mL/min (50-200); Estimated Glomerular Filt Rate 108 ml/min (>60); GFR (African American) 131 ML/MIN (>60); Globulin 2.6 g/dL (1.3-3.2); Glucose 105 mg/dl (74-100); Magnesium 2.1 mg/dl (1.6-2.3); Potassium 3.7 mmoL/L (3.5-5.1); Sodium 140 mmol/L (136-145); Total Protein,Serum 7.3 g/dl (6.3-8.2)
--- NOTE | 2024-03-26 15:00 | PC.NURSE ---
Pt taken to CT
--- NOTE | 2024-03-26 15:07 | HMH.EDGENADL ---
Discharge Plan Disposition Patient Disposition: Home, Self-Care Chief Complaint: Allergic Reaction Prescriptions Prescriptions: No Action quetiapine 200 mg tablet 200 mg PO HS meloxicam 7.5 mg tablet 7.5 mg PO DAILYP PRN (Reason: Pain) amitriptyline 100 mg tablet 100 mg PO HS Patient Comments: TAKE 1 TABLET BY MOUTH ONCE DAILY AT NIGHT duloxetine 30 mg capsule,delayed release(DR/EC) 30 mg PO HS Patient Comments: TAKE 1 CAPSULE BY MOUTH ONCE DAILY DO NOT CRUSH OR CHEW methocarbamol 500 mg Tablet 500 mg PO QID fluvoxamine 25 mg tablet 50 mg PO HS Patient Comments: TAKE 2 TABLETS BY MOUTH ONCE DAILY AT NIGHT hydroxychloroquine 400 mg tablet 400 mg PO HS Patient Comments: TAKE 1 TABLET BY MOUTH ONCE DAILY clonazepam 2 mg tablet 2 mg PO HS Patient Comments: TAKE 1 TABLET BY MOUTH ONCE DAILY pilocarpine HCl 5 mg tablet 5 mg PO TID Patient Comments: TAKE 1 TABLET BY MOUTH THREE TIMES DAILY potassium chloride 20 mEq tablet,ER particles/crystals 20 meq PO DAILY Patient Comments: TAKE 1 TABLET BY MOUTH ONCE DAILY, DO NOT CRUSH, CHEW OR SPLIT Linzess 145 mcg capsule 145 mcg PO DAILY Patient Comments: TAKE 1 CAPSULE BY MOUTH ONCE DAILY levofloxacin 750 mg tablet 750 mg PO DAILY 6 Days Qty: 6 0RF Rx Instructions: first dose 06/19 Referrals Follow up/Referrals: Provider,Referral, [Primary Care Provider] - See instructions Activity Restrictions/Add. Instructions Additional Instructions/Restrictions: At this time it was felt you are safe to be discharged home. If new or worsening symptoms please do not hesitate to return the emergency department. Please continue to follow-up with your doctor as you are able. If symptoms persist you may require more workup. Please continue to address your constipation with your family doctor. Follow-up with your neurology provider regarding dosing of Trileptal. Clinical Impressions Clinical Impression: Dizziness, Constipation Discharge ED Provider: Rajinder Rivera General Adult HPI <Carlo Arce MD - Last Filed: 03/26/24 15:33> General Chief complaint: Allergic Reaction Stated complaint: nausea, vomitting, headache, blurred vision Time Seen by Provider: 03/26/24 13:56 Mode of Arrival: Ambulatory Source of Information: Patient Limitations: No Limitations Description of Symptoms (Recalled from ER Triage Doc. by RN): Patient reports that she feels like she is having an allergic reaction to Trileptal. States she began taking it February 25 and since that time she has had N/V, constipation, dizziness, abnormal gait, tingling of skin, blurred vision and night sweats. Also states that her doctor took her off her Clonzepam around this time as well. Patient states her last dose of Trileptal was 2 nights ago. History of Present Illness HPI narrative: Patient is a 43-year-old female with past medical history of insomnia, mood disorder on recently started oxcarbazepine who presents emergency department for evaluation of multiple complaints. Patient has had blurred vision, dizziness, unsteadiness on her feet, constipation that is worse than normal ever since starting oxcarbazepine. No trauma. No focal weakness. She has constipation at baseline and has previously taken Linzess however does not take any currently. She was on Klonopin for over 15 years until last month when they tapered her off in 5 days. Related Data Home Medications Medication Instructions Recorded Confirmed amitriptyline 100 mg tablet 100 mg PO HS depression/sleep 06/15/23 06/15/23 duloxetine 30 mg capsule,delayed 30 mg PO HS Depression 06/15/23 06/16/23 release meloxicam 7.5 mg tablet 7.5 mg PO DAILYP PRN Pain 06/15/23 06/16/23 methocarbamol 500 mg tablet 500 mg PO QID muscle spasms 06/15/23 06/15/23 quetiapine 200 mg tablet 200 mg PO HS sleep 06/15/23 06/15/23 clonazepam 2 mg tablet 2 mg PO HS Anxiety 06/16/23 06/16/23 fluvoxamine 25 mg tablet 50 mg PO HS obsessive compulsive 06/16/23 06/16/23 disorder hydroxychloroquine 400 mg tablet 400 mg PO HS autoimmune disorder 06/16/23 06/16/23 linaclotide 145 mcg capsule 145 mcg PO DAILY irritable bowel 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 pilocarpine HCl 5 mg tablet 5 mg PO TID dry mouth 06/16/23 06/16/23 potassium chloride 20 mEq 20 meq PO DAILY potassium 06/16/23 06/16/23 tablet,extended release(part/cryst) supplement Previous Rx's Medication Instructions Recorded levofloxacin 750 mg tablet 750 mg PO DAILY 6 days #6 tabs 06/18/23 Allergies Allergy/AdvReac Type Severity Reaction Status Date / Time Sulfa (Sulfonamide Allergy Mild Verified 01/20/19 17:07 Antibiotics) [SULFA (SULFONAMIDE ANTIBIOTICS)] PFS <Carlo Arce MD - Last Filed: 03/26/24 15:33> [facility] Disclaimer: The information contained in this section may have been updated after the patient was seen, as this information can be updated by other users. Medical History (Updated 03/26/24 @ 15:32 by Carlo Arce MD) Irritable bowel syndrome (IBS) Surgical History (Updated 06/15/23 @ 17:38 by Jaime Fallon, RN) No significant past surgical history Family History (Updated 06/15/23 @ 17:36 by Jaime Fallon RN) Other Brain cancer Family history of asthma Family history of bronchitis Family history of migraine headaches Social History (Updated 06/15/23 @ 17:39 by Jaime Fallon RN) Smoking Status: Unknown if ever smoked alcohol intake: never current occupational status: employed Travel in the last 8 weeks: None household members: family housing: house <Carlo Arce MD - Last Filed: 03/26/24 15:33> ROS Obtained: Yes Systems reviewed as appropriate & no additional complaints except as documented Physical Exam <Carlo Arce MD - Last Filed: 03/26/24 15:33> General General appearance: alert and in no apparent distress Head Head exam: atraumatic and normocephalic Eye Eye exam: Present PERRL and EOMI ENT ENT exam: Present mucous membranes moist Neck Neck exam: Present normal inspection Chest Chest inspection: Present normal inspection and symmetric chest wall rise Respiratory Respiratory exam: Present normal lung sounds bilaterally; Absent respiratory distress Cardiovascular Cardiovascular exam: Present regular rate and normal rhythm Abdominal Exam Abdominal exam: Present soft; Absent tenderness Extremities Exam Extremities exam: Present normal inspection Neurological Exam Neurological exam: Present alert, CN II-XII intact and normal gait; Absent motor sensory deficit Psychiatric Psychiatric exam: Present normal affect Skin Skin exam: Present warm and dry Medical Decision Making <Carlo Arce MD - Last Filed: 03/26/24 15:33> [facility] Inquiry Pt receiving controlled substance: No Vital Signs: 03/26/24 13:53 03/26/24 14:00 03/26/24 14:30 Temperature 98.0 F Temperature Source Oral Pulse Rate 69 66 Pulse Rate [Radial] 74 Respiratory Rate 16 Blood Pressure 138/108 H 147/89 H Blood Pressure [Right Arm] 137/90 Blood Pressure Mean 118 108 Blood Pressure Mean [Right Arm] 105 Blood Pressure Source [Right Arm] Automatic Cuff Blood Pressure Position [Right Arm] Sitting 02 Sat by Pulse Oximetry 100 99 100 Oxygen Delivery Method Room Air 03/26/24 15:09 Temperature Temperature Source Pulse Rate 70 Pulse Rate [Radial] Respiratory Rate Blood Pressure 120/69 Blood Pressure [Right Arm] Blood Pressure Mean 86 Blood Pressure Mean [Right Arm] Blood Pressure Source [Right Arm] Blood Pressure Position [Right Arm] 02 Sat by Pulse Oximetry 100 Oxygen Delivery Method Lab Data Lab Results 03/26/24 14:10: WBC 5.7, RBC 4.03 L, Hgb 14.2, Hct 42.1, MCV 104.4 H, MCH 35.3 H, MCHC 33.8, RDW 12.4, Plt Count 256, MPV 7.9, Neut % (Auto) 74.1, Lymph % (Auto) 19.3, [place] % (Auto) 5.1, Eos % (Auto) 0.6, Baso % (Auto) 1.0, Neut # (Auto) 4.2, Lymph # (Auto) 1.1, [place] # (Auto) 0.3, Eos # (Auto) 0.0, Baso # (Auto) 0.1, Sodium 140, Potassium 3.7, Chloride 108 H, Carbon Dioxide 24, Anion Gap 11.7, BUN 8, Creatinine 0.60, Estimated Creat Clear 121, Estimated GFR 108, Est GFR ( Amer) 131, Glucose 105 H, Calcium 9.5, Magnesium 2.1, Total Bilirubin 0.5, AST 22, ALT 20, Alkaline Phosphatase 51, Total Creatine Kinase 52, Total Protein 7.3, Albumin 4.7, Globulin 2.6, Albumin/Globulin Ratio 1.8 03/26/24 14:10 03/26/24 14:10 Orders (Tests/Meds): ORDERS Category Date Time Status CT head/brain wo con Stat Cat Scan 03/26/24 14:44 Completed CBC w/Auto Diff [Complete Blood Count Auto Diff] Stat Lab 03/26/24 14:10 Completed CK [Creatine Kinase] Stat Lab 03/26/24 14:10 Completed CMP [Comprehensive Metabolic Panel] Stat Lab 03/26/24 14:10 Completed MG [Magnesium] Stat Lab 03/26/24 14:10 Completed Medical Decision Narrative: In summary patient is a 43-year-old female past medical history described above who presents emergency department for evaluation of multiple complaints after initiation of oxcarbazepine. Patient is hemodynamically stable nontoxic-appearing upon arrival, afebrile. Patient has a largely nonfocal neurologic exam. Differential diagnosis includes medication side effect, intracranial pathology, critical electrolyte abnormality, among others. Patient is constipated however has chronic constipation at baseline and is still passing flatus and has a benign abdominal exam therefore workup with imaging from that standpoint will be considered but will be deferred. Workup will be conducted with hematologic labs, noncontrasted CT scan of the head, EKG. Workup was largely pending at time of transfer of care to the oncoming physician, Dr. Rivera. <Rajinder Rivera MD - Last Filed: 03/26/24 16:43> Vital Signs: 03/26/24 13:53 03/26/24 14:00 03/26/24 14:30 Temperature 98.0 F Temperature Source Oral Pulse Rate 69 66 Pulse Rate [Radial] 74 Respiratory Rate 16 Blood Pressure 138/108 H 147/89 H Blood Pressure [Right Arm] 137/90 Blood Pressure Mean 118 108 Blood Pressure Mean [Right Arm] 105 Blood Pressure Source [Right Arm] Automatic Cuff Blood Pressure Position [Right Arm] Sitting 02 Sat by Pulse Oximetry 100 99 100 Oxygen Delivery Method Room Air 03/26/24 15:09 Temperature Temperature Source Pulse Rate 70 Pulse Rate [Radial] Respiratory Rate Blood Pressure 120/69 Blood Pressure [Right Arm] Blood Pressure Mean 86 Blood Pressure Mean [Right Arm] Blood Pressure Source [Right Arm] Blood Pressure Position [Right Arm] 02 Sat by Pulse Oximetry 100 Oxygen Delivery Method Lab Data Lab Results 03/26/24 14:10: WBC 5.7, RBC 4.03 L, Hgb 14.2, Hct 42.1, MCV 104.4 H, MCH 35.3 H, MCHC 33.8, RDW 12.4, Plt Count 256, MPV 7.9, Neut % (Auto) 74.1, Lymph % (Auto) 19.3, [place] % (Auto) 5.1, Eos % (Auto) 0.6, Baso % (Auto) 1.0, Neut # (Auto) 4.2, Lymph # (Auto) 1.1, [place] # (Auto) 0.3, Eos # (Auto) 0.0, Baso # (Auto) 0.1, Sodium 140, Potassium 3.7, Chloride 108 H, Carbon Dioxide 24, Anion Gap 11.7, BUN 8, Creatinine 0.60, Estimated Creat Clear 121, Estimated GFR 108, Est GFR ( Amer) 131, Glucose 105 H, Calcium 9.5, Magnesium 2.1, Total Bilirubin 0.5, AST 22, ALT 20, Alkaline Phosphatase 51, Total Creatine Kinase 52, Total Protein 7.3, Albumin 4.7, Globulin 2.6, Albumin/Globulin Ratio 1.8 Orders (Tests/Meds): ORDERS Category Date Time Status CT head/brain wo con Stat Cat Scan 03/26/24 14:44 Completed CBC w/Auto Diff [Complete Blood Count Auto Diff] Stat Lab 03/26/24 14:10 Completed CK [Creatine Kinase] Stat Lab 03/26/24 14:10 Completed CMP [Comprehensive Metabolic Panel] Stat Lab 03/26/24 14:10 Completed MG [Magnesium] Stat Lab 03/26/24 14:10 Completed Medical Decision Narrative: In summary patient is a 43-year-old female past medical history described above who presents emergency department for evaluation of multiple complaints after initiation of oxcarbazepine. Patient is hemodynamically stable nontoxic-appearing upon arrival, afebrile. Patient has a largely nonfocal neurologic exam. Differential diagnosis includes medication side effect, intracranial pathology, critical electrolyte abnormality, among others. Patient is constipated however has chronic constipation at baseline and is still passing flatus and has a benign abdominal exam therefore workup with imaging from that standpoint will be considered but will be deferred. Workup will be conducted with hematologic labs, noncontrasted CT scan of the head, EKG. Workup was largely pending at time of transfer of care to the oncoming physician, Dr. Rivera. Nicole: I assumed primary responsibility for this patient after signout from previous physician. Independent interpretation of hematologic and imaging workup demonstrated nonactionable findings. No acute intracranial abnormality. Patient was ambulated, tolerating p.o. intake. Because patient at baseline without signs or symptoms of clinical decompensation, deemed appropriate for discharge. Results were relayed to patient who voiced understanding and were agreeable to outpatient management and follow up. I discussed my clinical impression with patient and answered all questions. At this time, the evidence for any other entities in the differential is insufficient to warrant any further testing or ED observation. This was explained as well. Advisory was given that persistent or worsening symptoms require further evaluation. I confirmed the understanding of this discussion. Critical Care <Carlo Arce MD - Last Filed: 03/26/24 15:33> Critical Care Time Critical Care Time: No
[2024-03-26 15:09] VITALS: BP 120/69; PULSE 70; O2SAT 100
--- NOTE | 2024-03-26 15:09 | PC.NURSE ---
PT RETURNED FROM CT
--- NOTE | 2024-03-26 15:32 | PC.NURSE ---
patient ambulated without assistance around ED.
[2024-03-26 16:53] VITALS: BP 110/85; PULSE 71; RESP 16; TEMP 36.6; O2SAT 100
== END 2024-03-26 16:54 | disposition home or self-care (01) ==
PROVIDERS: Emergency Medicine; Emergency Provider Emergency Medicine
DX: R42 Dizziness and giddiness (principal); K59.00 Constipation, unspecified
CPT/HCPCS: 70450; 80053; 82550; 83735; 85025; 99284

== ENCOUNTER 2024-05-14 08:58 | Emergency (ER) | payer OTHER, SELFPAY ==
[2024-05-14 09:05] VITALS: BP 134/74; PULSE 83; RESP 18; TEMP 36.5; O2SAT 98; BMI 24.3
--- NOTE | 2024-05-14 09:23 | ED_ITS ---
Discharge Plan Disposition Patient Disposition: Home, Self-Care Condition: Good Prescriptions Prescriptions: New triamcinolone acetonide 0.1 % cream 1 applic topical BID PRN (Reason: itching) Qty: 30 0RF cephalexin 500 mg capsule 500 mg PO QID Qty: 40 0RF methylprednisolone 4 mg Tablets,Dose Pack 4 mg PO DIRECTED 6 Days Qty: 21 0RF Rx Instructions: Take 1 pack as directed for 6 days No Action pilocarpine HCl 5 mg tablet 5 mg PO TID Patient Comments: TAKE 1 TABLET BY MOUTH THREE TIMES DAILY quetiapine 300 mg tablet 300 mg PO HS Patient Comments: TAKE 1 TABLET BY MOUTH ONCE DAILY AT NIGHT clonazepam 1 mg tablet 1 mg PO HS Patient Comments: TAKE 1 TABLET BY MOUTH ONCE DAILY AT NIGHT duloxetine 30 mg capsule,delayed release(DR/EC) 30 mg PO DAILY Patient Comments: TAKE 1 CAPSULE BY MOUTH ONCE DAILY hydroxychloroquine 400 mg tablet 400 mg PO HS Patient Comments: TAKE 1 TABLET BY MOUTH EVERY DAY AT BEDTIME Referrals Follow up/Referrals: Sofia Walker [Primary Care Provider] - See instructions Activity Restrictions/Add. Instructions Additional Instructions/Restrictions: Try to identify and avoid contact with the offending substance. Don't start the oral steroids until tomorrow. Don't put the topical steroids (triamcinolone) on your face or your groin. Follow up with your regular doctor. GO TO THE ER FOR ANY WORSENING SYMPTOMS OR CONCERNS Clinical Impressions Clinical Impression: Contact dermatitis, Folliculitis Stand Alone Forms Stand Alone Forms: Work/School Release Instructions Patient Instructions: Triamcinolone Topical, Methylprednisolone, Dexamethasone Injection Discharge ED Provider: Nate Wang [facility] General Stated complaint: rash on body Mode of Arrival: Ambulatory Source of Information: Patient Limitations: No Limitations Time Seen by Provider: 05/14/24 09:23 Description of Symptoms (Recalled from Triage Doc. by RN): PATIENT C/O ITCHY, RED, BUMPY RASH ALL OVER THAT STARTED SUNDAY. 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 SHE STATES RASH IS SLIGHTLY BETTER THAN YESTERDAY BUT IS STILL BOTHERING HER. PATIENT ALSO C/O NAUSEA HEENT Symptoms (Recalled from RN notes): No Resp Symptoms (Recalled from RN notes): No Skin Symptoms (Recalled from RN notes): Yes MS Symptoms (Recalled from RN notes): No Functional Status (Recalled from RN notes): WNL History of Present Illness Provider Complaint: She states that she has had an itchy rash on her face, neck and body for the past 3 days. Related Data Home Medications Medication Instructions Recorded Confirmed clonazepam 1 mg tablet 1 mg PO HS 05/14/24 05/14/24 duloxetine 30 mg capsule,delayed 30 mg PO DAILY 05/14/24 05/14/24 release hydroxychloroquine 400 mg tablet 400 mg PO HS 05/14/24 05/14/24 pilocarpine HCl 5 mg tablet 5 mg PO TID 05/14/24 05/14/24 quetiapine 300 mg tablet 300 mg PO HS 05/14/24 05/14/24 Previous Rx's Medication Instructions Recorded cephalexin 500 mg capsule 500 mg PO QID #40 caps 05/14/24 methylprednisolone 4 mg tablets in 4 mg PO DIRECTED 6 days #21 tabs 05/14/24 a dose pack triamcinolone acetonide 0.1 % 1 applic topical BID PRN itching 05/14/24 topical cream #30 grams Allergies Allergy/AdvReac Type Severity Reaction Status Date / Time Sulfa (Sulfonamide Allergy Mild Verified 01/20/19 17:07 Antibiotics) [SULFA (SULFONAMIDE ANTIBIOTICS)] Worker's Comp Is this a Worker's Comp case?: No [facility] Disclaimer: The information contained in this section may have been updated after the patient was seen, as this information can be updated by other users. Medical History (Updated 05/14/24 @ 09:58 by Nate Wang APRN) Sjogrens syndrome Fibromyalgia Urinary tract infection Irritable bowel syndrome (IBS) Surgical History No significant past surgical history Family History (Updated 06/15/23 @ 17:36 by Jaime Fallon RN) Other Brain cancer Family history of asthma Family history of bronchitis Family history of migraine headaches Social History (Updated 06/15/23 @ 17:39 by Jaime Fallon RN) Smoking Status: Unknown if ever smoked alcohol intake: never current occupational status: employed Travel in the last 8 weeks: None household members: family housing: house ROS Obtained: Yes All systems reviewed & no additional complaints except as documented Constitutional Constitutional: Denies chills and Denies fever(s) Eyes Eyes: Denies eye discharge ENT Ears, Nose, Mouth, and Throat: Denies dizziness, Denies otalgia and Denies sore throat Cardiovascular Cardiovascular: Denies chest pain Respiratory Respiratory: Denies shortness of breath, Denies chest congestion, Denies cough, Denies stridor and Denies wheezing Gastrointestinal Gastrointestingal: Denies nausea or vomiting Musculoskeletal Musculoskeletal: Reports system reviewed and no additional complaints, except as documented and Denies arthralgias Integumentary/Breasts Skin/Breast: Reports as per HPI and Reports rash Neurologic Neurologic: Denies dizziness and Denies paresthesias Allergic/Immunologic Allergic/Immunologic: Denies wheezing Physical Exam General General appearance: alert and in no apparent distress Head Head exam: atraumatic, normocephalic and normal inspection Eye Eye exam: Present normal appearance, PERRL and EOMI ENT ENT exam: Present normal exam, normal oropharynx, mucous membranes moist, TM's normal bilaterally and normal external ear exam Neck Neck exam: Present normal inspection, full ROM and trachea midline; Absent meningismus or lymphadenopathy Chest Chest inspection: Present normal inspection and symmetric chest wall rise; Absent tenderness Respiratory Respiratory exam: Present normal lung sounds bilaterally; Absent respiratory distress Cardiovascular Cardiovascular exam: Present regular rate and normal rhythm; Absent JVD Abdominal Exam Abdominal exam: Present soft and normal bowel sounds; Absent distention, tenderness or guarding Extremities Exam Extremities exam: Present normal inspection, full ROM and normal capillary refill; Absent calf tenderness Back Exam Back exam: Present normal inspection; Absent tenderness Neurological Exam Neurological exam: Present alert and oriented X3 Psychiatric Psychiatric exam: Present normal affect and normal mood Skin Skin exam: Present rash Lymphatic Lymphatic Findings: no adenopathy Medical Decision Making Medical Records Medical records reviewed: No I reviewed the patient's medical records. Aurelio Inquiry Pt receiving controlled substance: No Vital Signs: 05/14/24 09:05 Temperature 97.7 F Temperature Source Oral Pulse Rate [Left Brachial] 83 Respiratory Rate 18 Blood Pressure [Left Arm] 134/74 Blood Pressure Mean [Left Arm] 94 Blood Pressure Source [Left Arm] Automatic Cuff Blood Pressure Position [Left Arm] Sitting 02 Sat by Pulse Oximetry 98 Oxygen Delivery Method Room Air
[2024-05-14] MEDS: DEXAMETHASONE 4MG/ML 1ML VIAL 8 MG IM (09:50)
[2024-05-14 09:59] VITALS: BP 134/74; PULSE 83; RESP 18; TEMP 36.5; O2SAT 98
== END 2024-05-14 10:02 | disposition home or self-care (01) ==
PROVIDERS: Emergency Provider Nurse Practitioner Family; PCP Family Medicine
DX: L25.9 Unspecified contact dermatitis, unspecified cause; L73.9 Follicular disorder, unspecified
CPT/HCPCS: 96372; 99212; 99214; G0463; J1100

== ENCOUNTER 2024-10-09 13:10 | Emergency (ER) | payer OTHER, SELFPAY ==
[2024-10-09 13:29] VITALS: BP 119/76; PULSE 82; RESP 18; TEMP 37.2; O2SAT 97; BMI 23.9
--- NOTE | 2024-10-09 13:36 | EXP.UTC ---
Discharge Plan Prescriptions Prescriptions: New fluticasone propionate [Flonase Allergy Relief] 50 mcg/actuation spray,suspension 2 spray intranasal DAILY Qty: 16 0RF Rx Instructions: administer into each nostril guaifenesin [Mucus Relief ER] 1,200 mg tablet extended release 12hr 1,200 mg PO Q12H PRN (Reason: congestion/cough) Qty: 20 0RF No Action pilocarpine HCl 5 mg tablet 5 mg PO TID Patient Comments: TAKE 1 TABLET BY MOUTH THREE TIMES DAILY quetiapine 300 mg tablet 300 mg PO HS Patient Comments: TAKE 1 TABLET BY MOUTH ONCE DAILY AT NIGHT clonazepam 1 mg tablet 1 mg PO HS Patient Comments: TAKE 1 TABLET BY MOUTH ONCE DAILY AT NIGHT hydroxychloroquine 400 mg tablet 400 mg PO HS Patient Comments: TAKE 1 TABLET BY MOUTH EVERY DAY AT BEDTIME Referrals Follow up/Referrals: Sofia Torres MD [Primary Care Provider] - See instructions Activity Restrictions/Add. Instructions Additional Instructions/Restrictions: *Monitor Temp, Over the counter Motrin or Tylenol as directed/as needed Tylenol every 4 hours and Motrin every 6 hours (as long as your family doctor has told you that you can take it) for fever or pain. and straight to ER if unable to lower temp less than 101.0 after medication given *Warm salt water gargles may help to soothe the throat *Throat Lozenges? *Warm fluids like tea with honey may help to soothe the throat? *Sleep elevated *Humidifier/Vaporizer *Flonase 2 sprays in each nostril daily but be aware that it may take 2-3 days before you notice improvement Your throat swab was sent for culture. Those results are typically sent to your primary care. Be sure to follow up in 2-3 days with your family doctor/primary care physician if no improvement so they can review those result and treat if necessary. If you don?t have a primary care doctor, I recommend you get one but in the mean time, you will have to return to a walk in clinic Follow up IMMEDIATELY for new or worsening symptoms or no Noticeable improvement over the next 48-72 hours. 911 for difficulty breathing or swallowing Clinical Impressions Clinical Impression: Viral upper respiratory tract infection with cough Instructions Patient Instructions: Cough, DI for Nasal Congestion, Sore Throat Print Language Print Language: Colombian Discharge ED Provider: Cori Houser [facility] General Stated complaint: cough, sore throat. drainage Mode of Arrival: Ambulatory Source of Information: Patient Time Seen by Provider: 10/09/24 13:36 Description of Symptoms (Recalled from Triage Doc. by RN): COUGH, SORE THROAT, CONGESTION HEENT Symptoms (Recalled from RN notes): Yes Resp Symptoms (Recalled from RN notes): Yes Skin Symptoms (Recalled from RN notes): No MS Symptoms (Recalled from RN notes): No Functional Status (Recalled from RN notes): WNL History of Present Illness Provider Complaint: Patient states that since Sunday she has been having cough, sore throat and nasal congestion States today her throat was still bothering her so she came in to get checked Related Data Home Medications ?Medication ?Instructions ?Recorded ?Confirmed clonazepam 1 mg tablet 1 mg PO HS 05/14/24 10/09/24 hydroxychloroquine 400 mg tablet 400 mg PO HS 05/14/24 10/09/24 pilocarpine HCl 5 mg tablet 5 mg PO TID 05/14/24 10/09/24 quetiapine 300 mg tablet 300 mg PO HS 05/14/24 10/09/24 Previous Rx's ?Medication ?Instructions ?Recorded fluticasone propionate 50 2 spray intranasal DAILY #16 grams 10/09/24 mcg/actuation nasal spray,suspension (Flonase Allergy Relief) guaifenesin 1,200 mg tablet, 1,200 mg PO Q12H PRN 10/09/24 extended release 12 hr (Mucus congestion/cough #20 tabs Relief ER) Allergies Allergy/AdvReac Type Severity Reaction Status Date / Time Sulfa (Sulfonamide Allergy Mild Verified 01/20/19 17:07 Antibiotics) (SULFA (SULFONAMIDE ANTIBIOTICS)) Worker's Comp Is this a Worker's Comp case?: No [facility] Disclaimer: The information contained in this section may have been updated after the patient was seen, as this information can be updated by other users. Medical History (Updated 10/09/24 @ 13:47 by Cori Houser APRN) Sjogrens syndrome Fibromyalgia Urinary tract infection Irritable bowel syndrome (IBS) Surgical History No significant past surgical history Family History (Updated 06/15/23 @ 17:36 by Jaime Fallon, KULWINDER) Other Brain cancer Family history of asthma Family history of bronchitis Family history of migraine headaches Social History (Updated 06/15/23 @ 17:39 by Jaime Fallon, KULWINDER) Smoking Status: Unknown if ever smoked alcohol intake: never current occupational status: employed Travel in the last 8 weeks: None household members: family housing: house ROS Obtained: Yes All systems reviewed & no additional complaints except as documented and Yes Systems reviewed as appropriate & no additional complaints except as documented Constitutional Constitutional: Reports system reviewed and no additional complaints, except as documented and Reports as per HPI ENT Ears, Nose, Mouth, and Throat: Reports system reviewed and no additional complaints, except as documented, Reports as per HPI, Reports nasal congestion, Reports nasal discharge and Reports sore throat Cardiovascular Cardiovascular: Reports system reviewed and no additional complaints, except as documented and Reports as per HPI Respiratory Respiratory: Reports system reviewed and no additional complaints, except as documented, Reports as per HPI and Reports cough Gastrointestinal Gastrointestingal: Reports system reviewed and no additional complaints, except as documented and as per HPI Physical Exam General General appearance: alert and in no apparent distress ENT ENT exam: Present mucous membranes moist Expanded ENT Exam Nose exam: Absent sinus tenderness Throat exam: Present tonsillar erythema (PND noted); Absent tonsillomegaly or tonsillar exudate Respiratory Respiratory exam: Present normal lung sounds bilaterally; Absent respiratory distress or wheezes Cardiovascular Cardiovascular exam: Present regular rate, normal rhythm and normal heart sounds Abdominal Exam Abdominal exam: Present soft and normal bowel sounds; Absent distention or tenderness Neurological Exam Neurological exam: Present alert, oriented X3 and normal gait Medical Decision Making Medical Records Screening: Per USPSTF and CDC recommendations, given the prevalence of disease in our region, it is our hospital?s policy to screen for HIV and viral Hepatitis for all patients aged 18 and over and those with ongoing risk factors. Aurelio Inquiry Pt receiving controlled substance: No Aurelio was queried for this patient: No Vital Signs: 10/09/24 13:29 Temperature 98.9 F Temperature Source Oral Pulse Rate [Left Radial] 82 Respiratory Rate 18 Blood Pressure [Left Arm] 119/76 Blood Pressure Mean [Left Arm] 90 02 Sat by Pulse Oximetry 97 Lab Data Lab results reviewed: Yes I reviewed the patient's lab results.
[2024-10-09 14:01] LABS: UTC Strep Screen (Rapid) Negative (Negative)
[2024-10-09 14:04] VITALS: BP 119/76; PULSE 82; RESP 18; TEMP 37.2
== END 2024-10-09 14:04 | disposition home or self-care (01) ==
PROVIDERS: Emergency Provider Nurse Practitioner; PCP Family Medicine
DX: J06.9 Acute upper respiratory infection, unspecified (principal)
CPT/HCPCS: 87880; 99213; G0381

== ENCOUNTER 2025-04-06 09:27 | Outpatient (CLI) | payer OTHER, SELFPAY ==
--- NOTE | 2025-04-06 09:30 | MR_ITS ---
FINAL REPORT CLINICAL HISTORY: pain and numbness in the left shoulder for 8 months COMPARISON: None FINDINGS: Multi planar MR imaging was obtained of the cervical spine. There is abnormal decreased signal throughout the cervical discs, most severe at the C6-7 level. The vertebrae are of normal height. There is no malalignment. The cervical cord demonstrates normal signal and configuration. C2-C3: There is no evidence of significant disc bulge or protrusion. There is no significant facet hypertrophy. C3-C4: There is no evidence of significant disc bulge or protrusion. There is no significant facet hypertrophy. C4-C5: There is no evidence of significant disc bulge or protrusion. There is no significant facet hypertrophy. C5-C6: There is mild endplate hypertrophy and moderate bilateral neural foraminal narrowing. C6-C7: A moderate annular bulge is present with a broad-based midline disc protrusion producing severe right and moderate left neural foraminal narrowing. C7-T1: There is no evidence of significant disc bulge or protrusion. There is no significant facet hypertrophy. IMPRESSION: Cervical degenerative changes present, most pronounced at the C6-7 level as described. Reviewed, Interpreted and Dictated by Wan Gutiérrez MD Transcribed by Patricia Vargas Authenticated and [facility]
== END 2025-04-06 23:59 | disposition home or self-care (01) ==
LOC: RAD 09:27
PROVIDERS: PCP Family Medicine; Visit Provider Family Medicine
DX: M47.812 Spondylosis without myelopathy or radiculopathy, cervical region (principal); M48.02 Spinal stenosis, cervical region
CPT/HCPCS: 72141